=== PATIENT | female | born 1940 | race Caucasian/White ===

== ENCOUNTER 2016-07-17 10:04 | Day surgery (SDC) | payer MEDICARE, OTHER ==
[~2016-07-17 10:04] MED LIST: BUPIVACAINE HCL 0.75% INJ/PF (7.5 MG/1 ML) 10 ML SDV OD PRN; KETOROLAC TROMETHAMINE 0.45% 4 DROP/0.4 ML DROPERETTE OD PRN; LIDOCAINE 4% INJ/PF (40 MG/ML) 5 ML AMPUL OD PRN
[2016-07-17] MEDS: TROPICAMIDE 1% OPH SOLN 3 ML OD PRN ×3 (10:20→10:52)
[2016-07-17] MEDS: CYCLOPENTOLATE 0.2%/PHENYLEPHRINE 1% OPH SOLN 2 ML OD PRN ×3 (10:20→10:52)
[2016-07-17] MEDS: BESIFLOXACIN HCL 0.6% OPH SUSP 5 ML BOTTLE OD PRN ×3 (10:21→11:39)
[2016-07-17] MEDS: TETRACAINE HCL 0.5% OPH SOLN 0.6 ML DROPERETTE OD PRN ×2 (10:22→10:53)
[2016-07-17] MEDS ORDERED: PHENYLEPHRINE/KETOROLAC 1%-0.3% 4 ML VIAL ONE (10:43)
[2016-07-17] MEDS ORDERED: CHONDR SU A NA/HYALUR INTRAOC KIT (SURGICARE) ONE (10:43)
[2016-07-17] MEDS ORDERED: MIDAZOLAM 2 MG/2 ML INJ ONE (10:44)
--- NOTE | 2016-07-17 11:53 | [facility] OPERATIVE REPORT E ---
[facility] Operative Report NAME: AUBRIE MCCULLOUGH AGE: 76Y DATE OF SURGERY: 07/17/2016 ROOM: PREOPERATIVE DIAGNOSIS: Cataract, right eye. POSTOPERATIVE DIAGNOSIS: Cataract, right eye. PROCEDURE PERFORMED: Phacoemulsification with posterior chamber intraocular lens, right eye. SURGEON: CARMEN CESAR M.D. ANESTHESIA: Topical with MAC. INDICATIONS FOR SURGERY: Difficulty with glare at night and reading. Best corrected visual acuity 20/60. DESCRIPTION OF PROCEDURE: The patient was brought to the Operating Room and placed on the operative table. Following tetracaine drops, topical anesthesia was administered. This consisted of instrument wipe pledgets soaked in a solution of 4% Xylocaine mixed with 0.75% Marcaine in a 1:2 ratio. A 2 x 1 cm pledget was placed in the superior fornix. A 1 x 1 cm pledget was placed in the inferior fornix. The eye was patched shut for 5 minutes. The patch was removed. The eye was sterilely prepped and draped in the usual manner. Lid speculum was placed in the eye. The pledgets were removed. 4-0 black silk sutures were placed around the superior and the inferior rectus muscles to be used as traction. A conjunctival peritomy was made at the 10 o'clock position. Hemostasis was obtained with bipolar cautery. A posterior limbal groove was created using a crescent knife and dissected anteriorly towards the cornea. A sharp point blade was used to create a paracentesis site at the 2 o'clock position. A 2.4 mm keratome was used to enter the anterior chamber through the groove. Viscoelastic was injected into the anterior chamber. An anterior capsulotomy was performed using Utrata forceps in a capsulorrhexis fashion. Hydrodissection and hydrodelineation were performed. Phacoemulsification was performed in [id number] technique. A total of 1 minute 50 seconds phaco time was used. Following this, the I/A unit was used to remove residual cortex. Viscoelastic was injected into the capsular bag. Intraocular lens model SN60WF, 26.0 diopters, serial number [id number] was placed in the capsular bag. The I/A unit was used to remove residual viscoelastic. The wound was seen to be watertight under high and low pressure, and no sutures were placed. The intraocular lens was well centered. The pressure was adjusted in the eye to normal pressure. The 4-0 black silk sutures and lid speculum were removed. The eye was shielded after Besivance drops were placed. The patient tolerated the procedure well and was sent to the Recovery Room in good condition. DICTATING PHYSICIAN: CARMEN CESAR M.D. [id number] PHY#: [id number] ID: [id number] JOB#: [id number] ACCT: [id number] cc:CARMEN CESAR M.D. >
--- NOTE | 2016-07-17 11:58 | [facility] DISCHARGE SUMMARY E ---
[facility] Discharge Summary NAME: AUBRIE MCCULLOUGH AGE: 76Y ADMITTED: 07/17/2016 DISCHARGED: 07/17/2016 HOSPITAL COURSE: The patient is a 76-year-old lady who underwent uneventful cataract extraction with intraocular lens implant, right eye, on 07/17/2016. She will be discharged to home. She is instructed to resume preoperative medications, take Tylenol as needed for discomfort, to keep her eye shielded, to use Besivance, Durezol, and Ilevro at 3:00 p.m. and 8:00 p.m., and to follow up in my office in 1 day. DICTATING PHYSICIAN: CARMEN CESAR M.D. [id number] PHY#: [id number] ID: [id number] JOB#: [id number] ACCT: [id number] cc:CARMEN CESAR M.D. >
== END 2016-07-17 12:17 | disposition home or self-care (01) ==
LOC: SC 10:04
PROVIDERS: ATTEND Ophthalmology
PROC: 08RJ3JZ Replacement of Right Lens with Synthetic Substitute, Percutaneous Approach (ICD-10-PCS; principal; 2016-07-17 11:30)
DX: H25.813 Combined forms of age-related cataract, bilateral (principal); H04 Disorders of lacrimal system; H04.123 Dry eye syndrome of bilateral lacrimal glands; H00.15 Chalazion left lower eyelid; I10 Essential (primary) hypertension; E78.00 Pure hypercholesterolemia, unspecified; M19.90 Unspecified osteoarthritis, unspecified site; Z79.1 Long term (current) use of non-steroidal anti-inflammatories (NSAID); Z79.899 Other long term (current) drug therapy
CPT/HCPCS: 66984; V2632; J2250; J3490 ×3; A9270; C9447; 142

== ENCOUNTER 2016-08-14 08:06 | Day surgery (SDC) | payer MEDICARE, OTHER ==
[~2016-08-14 08:06] MED LIST changes: -BUPIVACAINE HCL 0.75% INJ/PF (7.5 MG/1 ML) 10 ML SDV OD PRN; +BUPIVACAINE HCL 0.75% INJ/PF (7.5 MG/1 ML) 10 ML SDV OS PRN; -KETOROLAC TROMETHAMINE 0.45% 4 DROP/0.4 ML DROPERETTE OD PRN; +KETOROLAC TROMETHAMINE 0.45% 4 DROP/0.4 ML DROPERETTE OS PRN; -LIDOCAINE 4% INJ/PF (40 MG/ML) 5 ML AMPUL OD PRN; +LIDOCAINE 4% INJ/PF (40 MG/ML) 5 ML AMPUL OS PRN
[2016-08-14] MEDS ORDERED: CHONDR SU A NA/HYALUR INTRAOC KIT (SURGICARE) ONE (08:24)
[2016-08-14] MEDS ORDERED: EPINEPHRINE INJ/PF 1 MG/1 ML AMPULE ONE (08:24)
[2016-08-14] MEDS: TROPICAMIDE 1% OPH SOLN 3 ML OS PRN ×3 (08:45→09:05)
[2016-08-14] MEDS: BESIFLOXACIN HCL 0.6% OPH SUSP 5 ML BOTTLE OS PRN ×4 (08:45→09:55)
[2016-08-14] MEDS: CYCLOPENTOLATE 0.2%/PHENYLEPHRINE 1% OPH SOLN 2 ML OS PRN ×3 (08:45→09:05)
[2016-08-14] MEDS: TETRACAINE HCL 0.5% OPH SOLN 0.6 ML DROPERETTE OS PRN ×2 (08:46→09:05)
[2016-08-14] MEDS ORDERED: MIDAZOLAM 2 MG/2 ML INJ ONE (09:14)
[2016-08-14] MEDS ORDERED: FENTANYL CITRATE INJ/PF 100 MCG/2 ML AMPUL ONE (09:14)
--- NOTE | 2016-08-14 10:13 | [facility] OPERATIVE REPORT E ---
[facility] Operative Report NAME: AUBRIE MCCULLOUGH AGE: 76Y DATE OF SURGERY: 08/14/2016 ROOM: PREOPERATIVE DIAGNOSIS: CATARACT, LEFT EYE. POSTOPERATIVE DIAGNOSIS: CATARACT, LEFT EYE. PROCEDURE PERFORMED: PHACOEMULSIFICATION WITH POSTERIOR CHAMBER INTRAOCULAR LENS, LEFT EYE. SURGEON: CARMEN CESAR MD ANESTHESIA: TOPICAL WITH MAC. INDICATIONS FOR SURGERY: Difficulty reading small print and glare with night driving. Best visual acuity 20/50. PROCEDURE: The patient was brought to the Operating Room and placed on the operative table. Following tetracaine drops, topical anesthesia was administered. This consisted of instrument wipe pledgets soaked in a solution of 4% Xylocaine mixed with 0.75% Marcaine in a 1:2 ratio. A 2 x 1 cm pledget was placed in the superior fornix. A 1 x 1 cm pledget was placed in the inferior fornix. The eye was patched shut for 5 minutes. The patch was removed. The eye was sterilely prepped and draped in the usual manner. Lid speculum was placed in the eye. The pledgets were removed. 4-0 black silk sutures were placed around the superior and the inferior rectus muscles to be used as traction. A conjunctival peritomy was made at the 10 o'clock position. Hemostasis was obtained with bipolar cautery. A posterior limbal groove was created using a crescent knife and dissected anteriorly towards the cornea. A sharp point blade was used to create a paracentesis site at the 2 o'clock position. A 2.4 mm keratome was used to enter the anterior chamber through the groove. Viscoelastic was injected into the anterior chamber. An anterior capsulotomy was performed using Utrata forceps in a capsulorrhexis fashion. Hydrodissection and hydrodelineation were performed. Phacoemulsification was performed in [id number] technique. A total of 50 seconds phaco time was used. Following this, the I/A unit was used to remove residual cortex. Viscoelastic was injected into the capsular bag. Intraocular lens model SN60WF, 27.0 diopters, serial number [id number] was placed in the capsular bag. The I/A unit was used to remove residual viscoelastic. The wound was seen to be watertight under high and low pressure, and no sutures were placed. The intraocular lens was well centered. The pressure was adjusted in the eye to normal pressure. The 4-0 black silk sutures and lid speculum were removed. The eye was shielded after Besivance drops were placed. The patient tolerated the procedure well and was sent to the Recovery Room in good condition. DICTATING PHYSICIAN: CARMEN CESAR M.D. [id number] PHY#: [id number] ID: [id number] JOB#: [id number] ACCT: [id number] cc:CARMEN CESAR M.D. >
--- NOTE | 2016-08-14 12:23 | DISCHARGE SUMMARY E ---
Discharge Summary NAME: AUBRIE MCCULLOUGH : 1940 AGE: 76Y ADMITTED: 08/14/2016 DISCHARGED: 08/14/2016 FINAL DIAGNOSIS: Cataract left eye. HOSPITAL COURSE: The patient is a 76-year-old lady who underwent uneventful cataract extraction with intraocular lens implant left eye on 08/14/2016. DISPOSITION: The patient is discharged to home. DISCHARGE INSTRUCTIONS: The patient is instructed to resume preoperative medications, take Tylenol as needed for discomfort, keep her eye shielded, to use Besivance, Durezol, and Ilevro at 3 p.m. and 8 p.m., and follow up in my office in 1 day. DICTATING PHYSICIAN: CARMEN CESAR M.D. [id number] PHY#: [id number] ID: [id number] JOB#: [id number] ACCT: [id number] cc:CARMEN CESAR M.D. >
== END 2016-08-14 10:39 | disposition home or self-care (01) ==
LOC: SC 08:06
PROVIDERS: ATTEND Ophthalmology
PROC: 08RK3JZ Replacement of Left Lens with Synthetic Substitute, Percutaneous Approach (ICD-10-PCS; principal; 2016-08-14 09:30)
DX: H25.812 Combined forms of age-related cataract, left eye (principal); Z96.1 Presence of intraocular lens; I10 Essential (primary) hypertension; M19.90 Unspecified osteoarthritis, unspecified site; Z79.1 Long term (current) use of non-steroidal anti-inflammatories (NSAID); Z79.899 Other long term (current) drug therapy
CPT/HCPCS: 66984; V2632; J2250; J3490 ×3; A9270; J0171; J3010; 142

== ENCOUNTER → 2017-02-25 | Outpatient (CLI) | payer OTHER ==
[2017-02-25 13:24] LABS: ABSOLUTE LYMPHOCYTES (AUTO) 1.5 10^3/uL (0.5-4.7); ABSOLUTE MONOCYTES (AUTO) 0.3 10^3/uL (0.1-1.4); ABSOLUTE NEUT (AUTO) 2.8 10^3/uL (1.7-8.2); EOSINOPHILS % (AUTO) 0.7 % (0-6); HEMOGLOBIN 9.3 g/dL (12.0-15.5); HGB HCT DIFFERENCE 0.9; LYMPHOCYTES % (AUTO) 31.6 % (13-45); MEAN CORPUSCULAR HEMOGLOBIN 26.7 pg (27.0-33.4); MEAN CORPUSCULAR HGB CONC 34.4 g/dL (32.0-36.0); MEAN CORPUSCULAR VOLUME 78 fl (80-97); MONOCYTES % (AUTO) 6.7 % (3-13); RED BLOOD COUNT 3.47 10^6/uL (3.72-5.28); RED CELL DISTRIBUTION WIDTH 16.5 % (11.5-14.0); WHITE BLOOD COUNT 4.7 10^3/uL (4.0-10.5)
== END ==
LOC: OD 12:30
PROVIDERS: ATTEND Nurse Practitioner Acute Care
DX: R53.83 Other fatigue (principal); R55 Syncope and collapse
CPT/HCPCS: 36415; 84443; 85025; 87086

== ENCOUNTER 2017-03-11 09:32 | Day surgery (SDC) | payer MEDICARE, OTHER ==
[~2017-03-11 09:32] MED LIST changes: -BUPIVACAINE HCL 0.75% INJ/PF (7.5 MG/1 ML) 10 ML SDV OS PRN; -KETOROLAC TROMETHAMINE 0.45% 4 DROP/0.4 ML DROPERETTE OS PRN; -LIDOCAINE 4% INJ/PF (40 MG/ML) 5 ML AMPUL OS PRN; +PROPOFOL INJ 200 MG/20 ML VIAL IV ONE
[2017-03-11 11:05] VITALS: BP 108/69
--- NOTE | 2017-03-11 12:31 | Operative Report ---
Operative Report DATE OF SURGERY: 03/11/17 Operative Report: The risks, benefits and alternatives of the procedure including risks of bleeding, perforation requiring surgery are explained to the patient detail and informed consent was obtained. Patient was taken back to the endoscopy suite and placed in the left, lateral decubital position. Timeout was called. Propofol medications administered. A rectal examination is done which did not reveal any masses, tears or fissures. An Olympus videoscope was inserted into the patient's rectum. The scope was then carefully advanced all the way to the cecum. The cecum was identified by the usual anatomical landmarks including the ileocecal valve as well as the appendiceal office. Photodocumentation is obtained. The scope was then sequentially pulled back via the various segments of the colon including the ascending colon, hepatic flexure, transverse colon, splenic flexure, descending colon, and finding to the rectosigmoid portions of the colon. Retroflexion maneuvers performed. The risks benefits and alternatives of the procedure explained to the patient in detail and informed consent is obtained.A GIF Olympus video scope was inserted into the patient's mouth and hypopharynx ,the esophagus is identified intubated and insufflated, the scope was then advanced through the esophagus stomach and duodenum, retroflexion maneuver is done, the esophagus stomach and first and second portions of the duodenum examined PREOPERATIVE DIAGNOSIS: Colorectal cancer screening. Anemia, rule out GI bleed POSTOPERATIVE DIAGNOSIS: Gastritis status post biopsy rule out Helicobacter pylori. 2 colon polyps removed via biopsy forceps. Another colon polyp in the sigmoid area removed via snare polypectomy. Internal hemorrhoids OPERATION: Colonoscopy with snare polypectomy. Colonoscopy with biopsy. EGD with biopsy SURGEON: GAYLE PINA ANESTHESIA: LMAC TISSUE REMOVED OR ALTERED: As described above. COMPLICATIONS: None. ESTIMATED BLOOD LOSS: None. INTRAOPERATIVE FINDINGS: No masses, AVMs, diverticulosis noted. PROCEDURE: Patient tolerated procedure well. No immediate postprocedure complications are noted. Patient discharged in good condition. Discharge date March 11, 2017. Discharge diet: Regular. Discharge activity: Regular. 2-3 week follow-up to discuss findings. Patient is instructed to call the office or proceed to the emergency room should there be any further problems or questions. We will wait on pathology. 5 year surveillance colonoscopy.
== END 2017-03-11 11:00 | disposition home or self-care (01) ==
LOC: END 09:32
PROVIDERS: ATTEND Internal Medicine Gastroenterology
PROC: 0DB68ZX Excision of Stomach, Via Natural or Artificial Opening Endoscopic, Diagnostic (ICD-10-PCS; principal; 2017-03-11 11:30)
PROC: 0DBN8ZX Excision of Sigmoid Colon, Via Natural or Artificial Opening Endoscopic, Diagnostic (ICD-10-PCS; 2017-03-11 11:30)
DX: Z12.11 Encounter for screening for malignant neoplasm of colon (principal); D12.5 Benign neoplasm of sigmoid colon; K29.50 Unspecified chronic gastritis without bleeding; D64.9 Anemia, unspecified; I10 Essential (primary) hypertension; E78.2 Mixed hyperlipidemia; E78.00 Pure hypercholesterolemia, unspecified; I25.10 Atherosclerotic heart disease of native coronary artery without angina pectoris; M16.10 Unilateral primary osteoarthritis, unspecified hip; M47.9 Spondylosis, unspecified; Z86.73 Personal history of transient ischemic attack (TIA), and cerebral infarction without residual deficits; Z79.899 Other long term (current) drug therapy
CPT/HCPCS: 43239; 45380; 45385; 88342 ×2; 88305 ×2; J2704

== ENCOUNTER 2017-08-09 09:45 | Observation (INO) | payer MEDICARE, OTHER ==
--- NOTE | 2017-08-09 11:08 | ER Document Report ---
ED Medical Screen (RME) - General Chief Complaint: Fall Stated Complaint: FALL/HEAD PAIN Time Seen by Provider: 08/09/17 11:06 Mode of Arrival: Wheelchair Information source: Patient Notes: 77-year-old female brought into the emergency room after syncopal episode at home. Patient was climbing onto steps to the bed and passed out. She did fall back and hit her head. She has got some headache, nausea, blurry vision. Patient has mild posterior occipital pain. She denied any precipitating chest pain or shortness of breath. Her medicines include lisinopril and atenolol as well as vitamins. She is not allergic to anything. TRAVEL OUTSIDE OF THE [place] IN LAST 30 DAYS: No - Related Data Allergies/Adverse Reactions: No Known Allergies Allergy (Verified 08/09/17 10:54) Past Medical History - Social History Chew tobacco use (# tins/day): No Frequency of alcohol use: None Drug Abuse: None - Past Medical History Cardiac Medical History: Reports: Hx Coronary Artery Disease, Hx Hypertension - MEDICATED Denies: Hx Heart Attack Pulmonary Medical History: Denies: Hx Asthma, Hx Bronchitis, Hx COPD, Hx Pneumonia Neurological Medical History: Denies: Hx Cerebrovascular Accident, Hx Seizures Renal/ Medical History: Denies: Hx Peritoneal Dialysis GI Medical History: Denies: Hx Hepatitis, Hx Hiatal Hernia, Hx Ulcer Musculoskeltal Medical History: Reports Hx Arthritis Infectious Medical History: Denies: Hx Hepatitis Past Surgical History: Denies: Hx Hysterectomy, Hx Mastectomy, Hx Open Heart Surgery, Hx Pacemaker - Immunizations Hx Diphtheria, Pertussis, Tetanus Vaccination: Yes Physical Exam - Vital signs Vitals: Temp Pulse Resp BP Pulse Ox 97.6 F 67 16 116/81 100 08/09/17 10:05 08/09/17 10:05 08/09/17 10:05 08/09/17 10:05 08/09/17 10:05 Course - Vital Signs Vital signs: Temp Pulse Resp BP Pulse Ox 97.6 F 67 16 116/81 100 08/09/17 10:05 08/09/17 10:05 08/09/17 10:05 08/09/17 10:05 08/09/17 10:05
[2017-08-09 12:05] LABS: ABSOLUTE MONOCYTES (AUTO) 0.1 10^3/uL (0.1-1.4); ABSOLUTE NEUT (AUTO) 1.8 10^3/uL (1.7-8.2); BASOPHILS % (AUTO) 0.8 % (0-2); EOSINOPHILS % (AUTO) 0.3 % (0-6); HEMATOCRIT 30.5 % (36.0-47.0); HEMOGLOBIN 10.1 g/dL (12.0-15.5); LYMPHOCYTES % (AUTO) 33.9 % (13-45); MEAN CORPUSCULAR HEMOGLOBIN 26.3 pg (27.0-33.4); MEAN CORPUSCULAR HGB CONC 33.1 g/dL (32.0-36.0); MEAN CORPUSCULAR VOLUME 79 fl (80-97); MONOCYTES % (AUTO) 4.2 % (3-13); PLATELET COUNT 179 10^3/uL (150-450); RED BLOOD COUNT 3.85 10^6/uL (3.72-5.28); SEGMENTED NEUTROPHILS % (AUTO) 60.8 % (42-78); TOTAL CELLS COUNTED % (AUTO) 100 %; WHITE BLOOD COUNT 2.9 10^3/uL (4.0-10.5)
--- NOTE | 2017-08-09 12:24 | RADIOLOGY REPORT (SQ) ---
EXAM DESCRIPTION: CHEST SINGLE VIEW COMPLETED DATE/TIME: 08/09/2017 12:11 pm REASON FOR STUDY: syncope COMPARISON: None. EXAM PARAMETERS: NUMBER OF VIEWS: One view. TECHNIQUE: Single frontal radiographic view of the chest acquired. RADIATION DOSE: NA LIMITATIONS: None. FINDINGS: LUNGS AND PLEURA: No opacities, masses or pneumothorax. No pleural effusion. MEDIASTINUM AND HILAR STRUCTURES: No masses. Contour normal. HEART AND VASCULAR STRUCTURES: Borderline heart size. No overt CHF. BONES: No acute findings. HARDWARE: None in the chest. OTHER: No other significant finding. IMPRESSION: Nothing acute. The heart borderline size. TECHNICAL DOCUMENTATION: JOB ID: [id number] [employer]- All Rights Reserved Reading location - IP/workstation name: [email or web address]
[2017-08-09 12:26] LABS: ALANINE AMINOTRANSFERASE 26 U/L (9-52); ALBUMIN 4.2 g/dL (3.5-5.0); ALKALINE PHOSPHATASE 72 U/L (38-126); ANION GAP 9 (5-19); ASPARTATE AMINO TRANSFERASE 34 U/L (14-36); BILIRUBIN,DIRECT 0.7 mg/dL (0.0-0.4); BILIRUBIN,TOTAL 1.2 mg/dL (0.2-1.3); BLOOD UREA NITROGEN 21 mg/dL (7-20); CALCIUM 9.2 mg/dL (8.4-10.2); CARBON DIOXIDE 25 mmol/L (22-30); CHLORIDE 100 mmol/L (98-107); CREATINE KINASE 64 U/L (30-135); GLUCOSE 107 mg/dL (75-110); POTASSIUM 4.1 mmol/L (3.6-5.0); SODIUM 134.4 mmol/L (137-145); TOTAL PROTEIN 8.3 g/dL (6.3-8.2)
--- NOTE | 2017-08-09 12:29 | RADIOLOGY REPORT (SQ) ---
EXAM DESCRIPTION: CT HEAD WITHOUT COMPLETED DATE/TIME: 08/09/2017 12:19 pm REASON FOR STUDY: syncope COMPARISON: None. TECHNIQUE: Axial images acquired through the brain without intravenous contrast. Images reviewed wi th bone, brain and subdural windows. Images stored on PACS. All CT scanners at this facility use dose modulation, iterative reconstruction, and/or weight based d osing when appropriate to reduce radiation dose to as low as reasonably achievable (ALARA). [facility]: Dose Right [facility]: CareDose [facility]: Dose Right [facility]: Teradose 4D [facility]: [employer] RADIATION DOSE: CT Rad equipment meets quality standard of care and radiation dose reduction techniq ues were employed. CTDIvol: 49.0 mGy. DLP: 783 mGy-cm. mGy. LIMITATIONS: None. FINDINGS: VENTRICLES: Prominent. CEREBRUM: No masses. No hemorrhage. No midline shift. Areas of low density in the white matter mos t likely due to chronic micro-vascular ischemic change. No evidence for acute infarction. CEREBELLUM: No masses. No hemorrhage. No alteration of density. No evidence for acute infarction. EXTRAAXIAL SPACES: Mild age-related involutional change. No fluid collections. No masses. ORBITS AND GLOBE: No intra- or extraconal masses. Normal contour of globe without masses. CALVARIUM: No fracture. PARANASAL SINUSES: No fluid or mucosal thickening. SOFT TISSUES: No mass or hematoma. OTHER: No other significant finding. IMPRESSION: MILD CHRONIC CHANGES OF ATROPHY AND MICROVASCULAR ISCHEMIA. NO ACUTE PROCESS. EVIDENCE OF ACUTE STROKE: NO. TECHNICAL DOCUMENTATION: JOB ID: [id number] Quality ID # [id number]: Final reports with documentation of one or more dose reduction techniques (e.g., Au tomated exposure control, adjustment of the mA and/or kV according to patient size, use of iterative reconstruction technique) 2010 [employer]- All Rights Reserved Reading location - IP/workstation name: [email or web address]
[2017-08-09 12:38] LABS: CREATINE KINASE MB 0.79 ng/mL (<4.55); TROPONIN I < 0.012 ng/mL
--- NOTE | 2017-08-09 12:44 | RADIOLOGY REPORT (SQ) ---
EXAM DESCRIPTION: CT CERVICAL SPINE WITHOUT COMPLETED DATE/TIME: 08/09/2017 12:19 pm REASON FOR STUDY: syncope COMPARISON: None. TECHNIQUE: Axial images acquired through the cervical spine without intravenous contrast. Images re viewed with lung, soft tissue and bone windows. Reconstructed coronal and sagittal MPR images review ed. Images stored on PACS. All CT scanners at this facility use dose modulation, iterative reconstruction, and/or weight based d osing when appropriate to reduce radiation dose to as low as reasonably achievable (ALARA). [facility]: Dose Right [facility]: CareDose [facility]: Dose Right [facility]: Teradose 4D [facility]: [employer] RADIATION DOSE: CT Rad equipment meets quality standard of care and radiation dose reduction techniq ues were employed. CTDIvol: 14.3 mGy. DLP: 333 mGy-cm. mGy. LIMITATIONS: None. FINDINGS: ALIGNMENT: Anatomic. MINERALIZATION: Normal. VERTEBRAL BODIES: No fractures or dislocation. DISCS: Multilevel disc space narrowing with osteophytes. FACETS, LATERAL MASSES, POSTERIOR ELEMENTS: Facet arthropathy. No fractures. No dislocation. No ac avril findings. HARDWARE: None in the spine. VISUALIZED RIBS: No fractures. LUNG APICES AND SOFT TISSUES: No significant or acute findings. OTHER: No other significant finding. IMPRESSION: CHRONIC DEGENERATIVE CHANGES. NO ACUTE FINDINGS. TECHNICAL DOCUMENTATION: JOB ID: [id number] Quality ID # [id number]: Final reports with documentation of one or more dose reduction techniques (e.g., Au tomated exposure control, adjustment of the mA and/or kV according to patient size, use of iterative reconstruction technique) 2010 [employer]- All Rights Reserved Reading location - IP/workstation name: [email or web address]
--- NOTE | 2017-08-09 14:09 | ER Document Report ---
ED General - General Chief Complaint: Fall Stated Complaint: FALL/HEAD PAIN Time Seen by Provider: 08/09/17 11:06 Mode of Arrival: Wheelchair TRAVEL OUTSIDE OF THE [place] IN LAST 30 DAYS: No - HPI Patient complains to provider of: passed out while climbing two steps onto porch to go back into house Onset: Just prior to arrival Onset/Duration: Sudden Quality of pain: Other - pain right side of head after fall Associated symptoms: None Exacerbated by: Denies Relieved by: Denies Notes: She was home with her 7-year-old granddaughter and was going back into the house to help her get a dog back in the bathroom that she had let out. She states the next thing she knew she was climbing up 2 steps and then she woke up on the porch lying on her back. She did get up on her own went back into the house. - Related Data Allergies/Adverse Reactions: No Known Allergies Allergy (Verified 08/09/17 10:54) Past Medical History - General Information source: Patient - Social History Smoking Status: Unknown if Ever Smoked Chew tobacco use (# tins/day): No Frequency of alcohol use: None Drug Abuse: None Lives with: Family Family History: Hypertension Patient has suicidal ideation: No Patient has homicidal ideation: No - Past Medical History Cardiac Medical History: Reports: Hx Coronary Artery Disease, Hx Hypertension - MEDICATED Denies: Hx Heart Attack Pulmonary Medical History: Denies: Hx Asthma, Hx Bronchitis, Hx COPD, Hx Pneumonia Neurological Medical History: Denies: Hx Cerebrovascular Accident, Hx Seizures Endocrine Medical History: Reports: None Renal/ Medical History: Reports: None. Denies: Hx Peritoneal Dialysis Malignancy Medical History: Reports: None GI Medical History: Reports: None. Denies: Hx Hepatitis, Hx Hiatal Hernia, Hx Ulcer Musculoskeltal Medical History: Reports Hx Arthritis Psychiatric Medical History: Reports: None Traumatic Medical History: Reports: None Infectious Medical History: Reports: None. Denies: Hx Hepatitis Past Surgical History: Denies: Hx Hysterectomy, Hx Mastectomy, Hx Open Heart Surgery, Hx Pacemaker - Immunizations Hx Diphtheria, Pertussis, Tetanus Vaccination: Yes Hx Pneumococcal Vaccination: 02/09/16 Review of Systems - Review of Systems Constitutional: No symptoms reported EENT: No symptoms reported Cardiovascular: No symptoms reported Respiratory: No symptoms reported Gastrointestinal: No symptoms reported Genitourinary: No symptoms reported Female Genitourinary: No symptoms reported Musculoskeletal: No symptoms reported Skin: No symptoms reported Hematologic/Lymphatic: No symptoms reported Neurological/Psychological: No symptoms reported Physical Exam - Vital signs Vitals: Temp Pulse Resp BP Pulse Ox 97.6 F 67 16 116/81 100 08/09/17 10:05 08/09/17 10:05 08/09/17 10:05 08/09/17 10:05 08/09/17 10:05 - Notes Notes: PHYSICAL EXAMINATION: GENERAL: Well-appearing, well-nourished and in no acute distress. HEAD: Atraumatic, normocephalic. EYES: Pupils equal round and reactive to light, extraocular movements intact, conjunctiva are normal. ENT: Nares patent, oropharynx clear without exudates. Moist mucous membranes. NECK: Normal range of motion, supple without lymphadenopathy. No pain with palpation of the bony cervical spine. No step off. LUNGS: Breath sounds clear to auscultation bilaterally and equal. No wheezes rales or rhonchi. HEART: Regular rate and rhythm without murmurs. ABDOMEN: Soft, nontender, nondistended abdomen. No guarding, no rebound. No masses appreciated. Female : deferred Musculoskeletal: Normal range of motion, no pitting or edema. No cyanosis. NEUROLOGICAL: Cranial nerves grossly intact. Normal speech. Normal sensory, motor exams PSYCH: Normal mood, normal affect. SKIN: Warm, Dry, normal turgor, no rashes or lesions noted. Course - Re-evaluation Re-evalutation: 08/09/17 15:11 Labs- All tests 24 hr 08/09/17 08/09/17 08/09/17 11:50 11:50 11:50 WBC 2.9 L RBC 3.85 Hgb 10.1 L Hct 30.5 L MCV 79 L MCH 26.3 L MCHC 33.1 RDW 19.0 H Plt Count 179 Seg Neutrophils % 60.8 Lymphocytes % 33.9 Monocytes % 4.2 Eosinophils % 0.3 Basophils % 0.8 Absolute Neutrophils 1.8 Absolute Lymphocytes 1.0 Absolute Monocytes 0.1 Absolute Eosinophils 0.0 Absolute Basophils 0.0 Sodium 134.4 L Potassium 4.1 Chloride 100 Carbon Dioxide 25 Anion Gap 9 BUN 21 H Creatinine 0.96 Est GFR ( Amer) > 60 Est GFR (Non-Af Amer) 57 L Glucose 107 Calcium 9.2 Total Bilirubin 1.2 Direct Bilirubin 0.7 H Neonat Total Bilirubin Not Reportable Neonat Direct Bilirubin Not Reportable Neonat Indirect Bili Not Reportable AST 34 ALT 26 Alkaline Phosphatase 72 Creatine Kinase 64 CK-MB (CK-2) 0.79 Troponin I < 0.012 Total Protein 8.3 H Albumin 4.2 Abnormal - 24 hr 08/09/17 08/09/17 11:50 11:50 WBC 2.9 L Hgb 10.1 L Hct 30.5 L MCV 79 L MCH 26.3 L RDW 19.0 H Sodium 134.4 L BUN 21 H Est GFR (Non-Af Amer) 57 L Direct Bilirubin 0.7 H Total Protein 8.3 H Chest X-Ray 08/09/17 11:06 IMPRESSION: Nothing acute. The heart borderline size. Head CT 08/09/17 11:06 IMPRESSION: MILD CHRONIC CHANGES OF ATROPHY AND MICROVASCULAR ISCHEMIA. NO ACUTE PROCESS. EVIDENCE OF ACUTE STROKE: NO. Cervical Spine CT 08/09/17 11:07 IMPRESSION: CHRONIC DEGENERATIVE CHANGES. NO ACUTE FINDINGS. - Vital Signs Vital signs: Temp Pulse Resp BP Pulse Ox 97.6 F 67 13 116/76 100 08/09/17 10:05 08/09/17 10:05 08/09/17 14:18 08/09/17 14:18 08/09/17 14:18 - Laboratory Result Diagrams: 08/09/17 11:50 08/09/17 11:50 Laboratory results interpreted by me: 08/09/17 08/09/17 11:50 11:50 WBC 2.9 L Hgb 10.1 L Hct 30.5 L MCV 79 L MCH 26.3 L RDW 19.0 H Sodium 134.4 L BUN 21 H Est GFR (Non-Af Amer) 57 L Direct Bilirubin 0.7 H Total Protein 8.3 H Discharge - Discharge Clinical Impression: Syncope Condition: Stable Disposition: ADMITTED OBSERVATION Admitting Provider: Hospitalist - Dr. Wilson Unit Admitted: Telemetry
--- NOTE | 2017-08-09 14:27 | EKG REPORT ---
SEVERITY:- ABNORMAL ECG - SINUS RHYTHM LEFT VENTRICULAR HYPERTROPHY : Confirmed by: James Franks MD 09-Aug-2017 14:26:55
[2017-08-09] MEDS: IBUPROFEN 600 MG TABLET PO PRN (17:15)
[2017-08-09] MEDS: ACETAMINOPHEN 325 MG TABLET PO PRN (19:13)
[2017-08-10 05:11] LABS: HEMATOCRIT 27.1 % (36.0-47.0); HEMOGLOBIN 9.1 g/dL (12.0-15.5); MEAN CORPUSCULAR HEMOGLOBIN 26.8 pg (27.0-33.4); MEAN CORPUSCULAR HGB CONC 33.7 g/dL (32.0-36.0); MEAN CORPUSCULAR VOLUME 80 fl (80-97); PLATELET COUNT 145 10^3/uL (150-450); RED BLOOD COUNT 3.41 10^6/uL (3.72-5.28); RED CELL DISTRIBUTION WIDTH 18.8 % (11.5-14.0); WHITE BLOOD COUNT 2.5 10^3/uL (4.0-10.5)
[2017-08-10 05:32] LABS: BLOOD UREA NITROGEN 25 mg/dL (7-20); CALCIUM 8.6 mg/dL (8.4-10.2); GLUCOSE 95 mg/dL (75-110); POTASSIUM 3.9 mmol/L (3.6-5.0)
[2017-08-10 05:37] LABS: CARBON DIOXIDE 27 mmol/L (22-30); CHLORIDE 105 mmol/L (98-107); SODIUM 135.3 mmol/L (137-145)
[2017-08-10 05:40] LABS: ANION GAP 4 (5-19)
[2017-08-10] MEDS: IBUPROFEN 600 MG TABLET PO PRN ×2 (05:52→18:01)
[2017-08-10 06:17] LABS: ABSOLUTE LYMPHOCYTES# (MANUAL) 1.7 10^3/uL (0.5-4.7); ABSOLUTE MONOCYTES # (MANUAL) 0.1 10^3/uL (0.1-1.4); ABSOLUTE NEUTROPHILS# (MANUAL) 0.6 10^3/uL (1.7-8.2); BASOPHILS % (MANUAL) 1 % (0-2); EOSINOPHILS % (MANUAL) 4 % (0-6); MONOCYTES % (MANUAL) 4 % (3-13); SEGMENTED NEUTROPHILS % (MAN) 25 % (42-78); TOTAL CELLS COUNTED 100
[2017-08-10 06:19] LABS: ANISOCYTOSIS 2+; OVALOCYTES SLIGHT; PLATELET COMMENT ADEQUATE; POLYCHROMASIA SLIGHT
[2017-08-10 06:20] LABS: LYMPHOCYTES % (MANUAL) 66 % (13-45)
[2017-08-10] MEDS: ENOXAPARIN SODIUM INJ 30 MG/0.3 ML DISP.SYRIN SUBCUT SCH (10:59)
[2017-08-10] MEDS: ACETAMINOPHEN 325 MG TABLET PO PRN ×2 (11:00→21:30)
--- NOTE | 2017-08-10 15:10 | XCELERA REPORT ---
[address] [address] Transthoracic Echocardiogram Report Name: AUBRIE MCCULLOUGH Age: 77 yrs Gender: Female : 1940 Patient Status: Inpatient Patient Location: [address] [place] [address] Study Date: 08/10/2017 12:01 PM Height: 65 in Weight: 130 lb BSA: 1.6 m2 Procedure: A complete two-dimensional transthoracic echocardiogram was performed (2D, M-mode, spectral and color flow Doppler). The study was technically adequate with some images being suboptimal in quality. Reason For Study: Recurrent syncope Ordering Physician: TIMOTHY ANDERS Performed By: Sharyn Antonio Interpretation Summary Left ventricular systolic function is low normal. There is borderline concentric left ventricular hypertrophy. The left ventricle is grossly normal size. LV diastolic function could not be adequately assessed. Wall motion cannot be accurately commented on, but no definite regional wall motion abnormalities noted. The right ventricular systolic function is normal. The left atrium is mildly dilated. The right atrium is normal in size There is a moderate amount of mitral regurgitation There is no mitral valve stenosis. There is a mild amount of aortic regurgitation There is no aortic valve stenosis There is a mild to moderate amount of tricuspid regurgitation There is mild pulmonary hypertension by echo Right ventricular systolic pressure is estimated to be elevated at 30- 40mmHg. The aortic root is not well visualized but is probably normal size. The inferior vena cava appeared normal and decreased < 50% with respiration (RAP 10-15 mmHg) Minimal pericardial effusion. MMode/2D Measurements & Calculations RVDd: 2.3 cm LVIDd: 4.5 cm FS: 20.2 % MV Diam: 3.1 cm IVSd: 1.0 cm LVIDs: 3.6 cm EDV(Teich): LVPWd: 1.00 cm 94.2 ml ESV(Teich): 55.1 ml EF(Teich): 41.5 % Ao root diam: LVOT diam: LVLd ap4: 6.6 cm SV(MOD-sp4): 39.0 ml 3.0 cm 2.1 cm EDV(MOD-sp4): Ao root area: LVOT area: 76.0 ml 7.0 cm2 3.4 cm2 LVLs ap4: 5.6 cm LA dimension: ESV(MOD-sp4): 4.0 cm 37.0 ml EF(MOD-sp4): 51.3 % LA A2Cs: 27.4 cm2 LA A4Cs: LA length: 6.4 cm LA Vol Index (BP): 30.0 cm2 65.9 ml/m2 LA Volume: 108.5 ml Doppler Measurements & Calculations MV E max graham: MV area (1 diam): MV P1/2t max graham: Ao V2 max: 95.2 cm/sec 96.0 cm/sec 152.0 cm/sec MV A max graham: 7.7 cm2 MV P1/2t: 36.4 msec Ao max P.7 cm/sec MV Flow area 9.2 mmHg MV E/A: 2.0 (1diam): 7.7 cm2 MVA(P1/2t): 6.0 cm2 LARRY(V,D): MV dec slope: 772.9 cm/sec2 2.0 cm2 AI max graham: LV V1 max PG: MR max graham: PA V2 max: 390.9 cm/sec 3.1 mmHg 687.7 cm/sec 92.8 cm/sec AI max PG: LV V1 max: MR max PG: PA max P.2 mmHg 88.3 cm/sec 189.2 mmHg 3.4 mmHg AI dec slope: LV dP/dt: 170.4 cm/sec2 1010 mmHg/s AI P1/2t: 671.9 msec TR max graham: 260.6 cm/sec TR max P.2 mmHg Left Ventricle The left ventricle is grossly normal size. There is borderline concentric left ventricular hypertrophy. Left ventricular systolic function is low normal. LV diastolic function could not be adequately assessed. Wall motion cannot be accurately commented on, but no definite regional wall motion abnormalities noted. Right Ventricle The right ventricle is grossly normal size. There is normal right ventricular wall thickness. The right ventricular systolic function is normal. Atria The right atrium is normal in size. The left atrium is mildly dilated. Interarterial septum not well visualized and not well dopplered. Cannot comment on ASD/PFO presence. Mitral Valve The mitral valve is grossly normal. There is no mitral valve stenosis. There is a moderate amount of mitral regurgitation. Aortic Valve The aortic valve is grossly normal. There is no aortic valve stenosis. There is a mild amount of aortic regurgitation. Tricuspid Valve The tricuspid valve is not well visualized, but is grossly normal. There is no tricuspid stenosis. There is a mild to moderate amount of tricuspid regurgitation. There is mild pulmonary hypertension by echo. Right ventricular systolic pressure is estimated to be elevated at 30-40mmHg. Pulmonic Valve The pulmonic valve is not well visualized. There is a trace or physiologic amount of pulmonic regurgitation. Great Vessels The aortic root is not well visualized but is probably normal size. The inferior vena cava appeared normal and decreased < 50% with respiration (RAP 10-15 mmHg). Effusions Minimal pericardial effusion. : ONIME, AGUIRRE > Lacho Colbert
--- NOTE | 2017-08-10 15:24 | PDOC H&P ---
History of Present Illness Admission Date/PCP: 08/09/17 14:10 MENDEZ BORJA DO Patient complains of: Fall. History of Present Illness: AUBRIE MCCULLOUGH is a 77 year old female history of hypertension presented to the ED after a syncopal episode at home. Patient reports climbing up steps on the porch getting ready to take her 7-year old great-granddaughter to school when she suddenly collapsed. She had no prodrome or aura. She did not think she lost consciousness or was out for a long time. No loss of urine or back continence, no shaking motions, no tongue biting. Complains of pain right side of the head, no bleeding. She got up after the episode and drove her great granddaughter to school. She denies chest pain, no fever or chills, no nausea vomiting. She had a headache, but that has improved. Initial evaluation including head and cervical CT scan without acute process. EKG sinus rhythm with LVH. Patient referred to hospitalist and being admitted to observation for further evaluation and management. Of note is that patient reports history of syncope twice in the past, once in January 2016 and the other on February 10, 2017. She also reports history of anemia and colonoscopy has been negative. EGD also apparently unremarkable and she has been treated for H. pylori infection. She is seeing methodologist, Dr. Nam, and states she is being considered for bone marrow biopsy. Past Medical History Cardiac Medical History: Reports: Coronary Artery Disease, Hypertension - MEDICATED Denies: Myocardial Infarction Pulmonary Medical History: Denies: Asthma, Bronchitis, Chronic Obstructive Pulmonary Disease (COPD), Pneumonia Neurological Medical History: Denies: Seizures Endocrine Medical History: Reports: None Renal/ Medical History: Reports: None Malignancy Medical History: Reports: None GI Medical History: Reports: None Denies: Hepatitis, Hiatal Hernia Musculoskeltal Medical History: Reports: Arthritis Psychiatric Medical History: Reports: None Traumatic Medical History: Reports: None Hematology: Reports: Anemia Denies: Sickle Cell Disease Infectious Medical History: Reports: None Past Surgical History Past Surgical History: Denies: Amputation, Hysterectomy, Mastectomy, Pacemaker Social History Lives with: Family Smoking Status: Unknown if Ever Smoked Frequency of Alcohol Use: None Family History Family History: Hypertension Parental Family History Reviewed: Yes Children Family History Reviewed: Unknown Sibling(s) Family History Reviewed.: Unknown Medication/Allergy Home Medications: Lysine HCl [L-Lysine] 500 mg PO DAILY 08/09/17 Magnesium 250 mg PO DAILY 08/09/17 Multivit-Min/Iron/Folic/Lutein [Centrum Silver Women Tablet] 1 each PO DAILY 07/28 Atenolol [Tenormin 50 mg Tablet] 50 mg PO DAILY 08/10/17 Furosemide [Lasix 20 mg Tablet] 20 mg PO DAILY 08/10/17 Lisinopril/Hydrochlorothiazide [Lisinopril-Hctz 20-25 mg Tab] 1 tab PO DAILY 08/25 Allergies/Adverse Reactions: No Known Allergies Allergy (Verified 08/09/17 10:54) Review of Systems Review of Systems: As in HPI. Also, denies heat or cold intolerance, no significant depression, no abdominal pain, denies hematemesis. No hematuria, no dysuria polyuria or urinary frequency. Has a problem with lower extremity edema currently improved. Also was thought to have cellulitis in the recent past and treated with antibiotics and steroids doing better. Physical Exam Vital Signs: Temp Pulse Resp BP Pulse Ox 97.6 F 67 13 116/76 100 08/09/17 10:05 08/09/17 10:05 08/09/17 14:18 08/09/17 14:18 08/09/17 14:18 GENERAL: Well-developed, well-nourished, no acute distress HEENT: Normocephalic/atraumatic PERRL, extraocular muscles intact, sclerae anicteric NECK supple, no JVD, right carotid bruit heard CARDIOVASCULAR: RRR, normal S1-S2 LUNGS: CTA bilaterally ABDOMEN: Soft, NT, NL bowel sounds EXTREMITIES: No edema, clubbing, cyanosis NEUROLOGICAL: Alert, oriented x 3, nonfocal Results Laboratory Results: Labs- All tests 24 hr 08/09/17 08/09/17 08/09/17 11:50 11:50 11:50 WBC 2.9 L RBC 3.85 Hgb 10.1 L Hct 30.5 L MCV 79 L MCH 26.3 L MCHC 33.1 RDW 19.0 H Plt Count 179 Seg Neutrophils % 60.8 Lymphocytes % 33.9 Monocytes % 4.2 Eosinophils % 0.3 Basophils % 0.8 Absolute Neutrophils 1.8 Absolute Lymphocytes 1.0 Absolute Monocytes 0.1 Absolute Eosinophils 0.0 Absolute Basophils 0.0 Sodium 134.4 L Potassium 4.1 Chloride 100 Carbon Dioxide 25 Anion Gap 9 BUN 21 H Creatinine 0.96 Est GFR ( Amer) > 60 Est GFR (Non-Af Amer) 57 L Glucose 107 Calcium 9.2 Total Bilirubin 1.2 Direct Bilirubin 0.7 H Neonat Total Bilirubin Not Reportable Neonat Direct Bilirubin Not Reportable Neonat Indirect Bili Not Reportable AST 34 ALT 26 Alkaline Phosphatase 72 Creatine Kinase 64 CK-MB (CK-2) 0.79 Troponin I < 0.012 Total Protein 8.3 H Albumin 4.2 Abnormal - 24 hr 08/09/17 08/09/17 11:50 11:50 WBC 2.9 L Hgb 10.1 L Hct 30.5 L MCV 79 L MCH 26.3 L RDW 19.0 H Sodium 134.4 L BUN 21 H Est GFR (Non-Af Amer) 57 L Direct Bilirubin 0.7 H Total Protein 8.3 H Impressions: Chest X-Ray 08/09/17 11:06 IMPRESSION: Nothing acute. The heart borderline size. Head CT 08/09/17 11:06 IMPRESSION: MILD CHRONIC CHANGES OF ATROPHY AND MICROVASCULAR ISCHEMIA. NO ACUTE PROCESS. EVIDENCE OF ACUTE STROKE: NO. Cervical Spine CT 08/09/17 11:07 IMPRESSION: CHRONIC DEGENERATIVE CHANGES. NO ACUTE FINDINGS. Assessment & Plan - Diagnosis (1) Syncope Is this a current diagnosis for this admission?: Yes (2) Hypertension Is this a current diagnosis for this admission?: Yes (3) Anemia Is this a current diagnosis for this admission?: Yes (4) Leukopenia Is this a current diagnosis for this admission?: Yes (5) Right carotid bruit Is this a current diagnosis for this admission?: Yes - Plan Summary Plan Summary: We will admit patient to observation observation. Will monitor on telemetry to evaluate for arrhythmia. We will check echocardiogram. Also check carotid Dopplers, especially in light of right carotid bruit. Will rule out [place] with serial troponin. Check electrolytes/magnesium level.
[2017-08-11 04:53] LABS: HEMATOCRIT 28.1 % (36.0-47.0); HEMOGLOBIN 9.4 g/dL (12.0-15.5); MEAN CORPUSCULAR HEMOGLOBIN 26.4 pg (27.0-33.4); MEAN CORPUSCULAR HGB CONC 33.4 g/dL (32.0-36.0); MEAN CORPUSCULAR VOLUME 79 fl (80-97); PLATELET COUNT 149 10^3/uL (150-450); RED BLOOD COUNT 3.56 10^6/uL (3.72-5.28); RED CELL DISTRIBUTION WIDTH 19.1 % (11.5-14.0); WHITE BLOOD COUNT 2.2 10^3/uL (4.0-10.5)
[2017-08-11 05:08] LABS: ANION GAP 9 (5-19); BLOOD UREA NITROGEN 28 mg/dL (7-20); CARBON DIOXIDE 24 mmol/L (22-30); CHLORIDE 105 mmol/L (98-107); GLUCOSE 91 mg/dL (75-110); SODIUM 138.3 mmol/L (137-145)
[2017-08-11 07:24] LABS: ABSOLUTE LYMPHOCYTES# (MANUAL) 1.1 10^3/uL (0.5-4.7); ABSOLUTE MONOCYTES # (MANUAL) 0.2 10^3/uL (0.1-1.4); ABSOLUTE NEUTROPHILS# (MANUAL) 0.8 10^3/uL (1.7-8.2); BASOPHILS % (MANUAL) 1 % (0-2); EOSINOPHILS % (MANUAL) 3 % (0-6); LYMPHOCYTES % (MANUAL) 45 % (13-45); MONOCYTES % (MANUAL) 9 % (3-13); SEGMENTED NEUTROPHILS % (MAN) 37 % (42-78); TOTAL CELLS COUNTED 100
[2017-08-11 07:25] LABS: ANISOCYTOSIS 1+; HYPOCHROMASIA 1+; PLATELET COMMENT ADEQUATE
[2017-08-11] MEDS: ENOXAPARIN SODIUM INJ 30 MG/0.3 ML DISP.SYRIN SUBCUT SCH (11:18)
--- NOTE | 2017-08-11 14:12 | PDOC PROGRESS REPORT ---
Subjective Progress Note for:: 08/11/17 Subjective:: Doing better today. Headaches remain resolved, denies palpitations or chest pain. Chem-7 today reveals that creatinine bumped up. Patient has been using ibuprofen for pain, as prefers. Making urine okay, denies dysuria or polyuria or frequency. Of note is that patient was noted this admission to have significantly higher blood pressures on the right arm than on the left. States it has been so for several years. Also of note is that blood pressure systolic running low left side in spite of BP medications on hold. Denies fever or chills, no nausea or vomiting. No recurrent syncope since in the hospital. Reason For Visit: RECURRENT SYNCOPE,HYPERTENSION Physical Exam Vital Signs: Temp Pulse Resp BP Pulse Ox 97.6 F 75 16 107/65 99 08/11/17 11:27 08/11/17 11:27 08/11/17 11:27 08/11/17 11:27 08/11/17 11:27 Intake & Output 08/10/17 08/11/17 08/12/17 06:59 06:59 06:59 Intake Total 690 Balance 690 Weight 57.6 kg GEN: NAD, well-developed, well-nourished CV: RRR, NL S1S2 LUNGS: CTA bilaterally ABDOMEN Soft, NT, +BS EXTERMITIES: No e/c/c NEURO: Alert, oriented 3, no acute weakness Results Laboratory Results: 08/11/17 04:05 08/11/17 04:05 08/11/17 08/11/17 04:05 04:05 WBC 2.2 L RBC 3.56 L Hgb 9.4 L Hct 28.1 L MCV 79 L MCH 26.4 L MCHC 33.4 RDW 19.1 H Plt Count 149 L Seg Neutrophils % Not Reportable Lymphocytes % Not Reportable Monocytes % Not Reportable Eosinophils % Not Reportable Basophils % Not Reportable Absolute Neutrophils Not Reportable Absolute Lymphocytes Not Reportable Absolute Monocytes Not Reportable Absolute Eosinophils Not Reportable Absolute Basophils Not Reportable Sodium 138.3 Potassium 4.0 Chloride 105 Carbon Dioxide 24 Anion Gap 9 BUN 28 H Creatinine 1.49 H Est GFR ( Amer) 41 L Est GFR (Non-Af Amer) 34 L Glucose 91 Calcium 9.0 08/09/17 17:05 Troponin I < 0.012 Impressions: Chest X-Ray 08/09/17 11:06 IMPRESSION: Nothing acute. The heart borderline size. Head CT 08/09/17 11:06 IMPRESSION: MILD CHRONIC CHANGES OF ATROPHY AND MICROVASCULAR ISCHEMIA. NO ACUTE PROCESS. EVIDENCE OF ACUTE STROKE: NO. Cervical Spine CT 08/09/17 11:07 IMPRESSION: CHRONIC DEGENERATIVE CHANGES. NO ACUTE FINDINGS. Assessment & Plan - Diagnosis (1) Syncope Is this a current diagnosis for this admission?: Yes Plan: Patient may be having syncope episodes secondary to hypotensive episodes. She may be on too much blood pressure medications. We will continue to hold blood pressure medication check blood pressures. Also check orthostatics. -Echo EF low normal, moderate MR. - carotid Dopplers results pending--follow-up results. -Also concern is the differential BP reading in her upper extremities. Creatine up today -- hydrate gently and consider CTA to evaluate for subclavian steal syndrome (2) Hypertension Is this a current diagnosis for this admission?: Yes Plan: Currently controlled off BP meds. It is possible blood pressure meds were being titrated up with the reading on the right arm. We will continue to hold blood pressure medications and monitor blood pressures. (3) Anemia Is this a current diagnosis for this admission?: Yes Plan: H&H stable. We will continue to trend. Patient follows up with Dr. Bullard of hematology as outpatient. (4) Leukopenia Is this a current diagnosis for this admission?: Yes Plan: Slowly trending down. Continue to follow. Again, patient follow-up with Dr. Nam of hematology as outpatient. (5) Right carotid bruit Is this a current diagnosis for this admission?: Yes Plan: Workup in progress, carotid ultrasound has been done and results pending.
--- NOTE | 2017-08-11 14:43 | RADIOLOGY REPORT (SQ) ---
EXAM DESCRIPTION: CAROTID DOPPLER COMPLETED DATE/TIME: 08/10/2017 2:00 pm REASON FOR STUDY: Syncope, RT carotid bruit R55 SYNCOPE AND COLLAPSE COMPARISON: None. TECHNIQUE: Grayscale ultrasound, Doppler velocity and spectra, and color Doppler images acquired of the extra-cranial carotid and vertebral arteries. Images stored on PACS. LIMITATIONS: None. FINDINGS: RIGHT CAROTID CCA Velocities: Within normal limits. ICA Velocities Peak systolic 1.38 m/s. End diastolic 0.36 m/s. Proximal ICA/CCA peak systolic ratio 1.5. Heterogenous irregular plaque. LEFT CAROTID CCA Velocities: Within normal limits. ICA Velocities Peak systolic 0.96 m/s. End diastolic 124 m/s. Proximal ICA/CCA peak systolic ratio 0.8. Heterogenous irregular plaque. VERTEBRAL ARTERIES: Stenosis of both vertebral arteries. Retrograde flow in the left vertebral arter y. SUBCLAVIAN ARTERIES: Stenosis of the left subclavian artery with blood pressure differential. OTHER: Elevated velocity in the external carotid arteries. Systolic velocity in the right external c arotid artery is 4.16 m/sec and in the left external carotid artery is 2.13 m/sec. IMPRESSION: 1. PLAQUE IN THE RIGHT AND LEFT CAROTID ARTERIES. 50- 69% STENOSIS OF THE RIGHT INTERNAL CAROTID ART CHIQUITA. 2. 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 3. STENOSIS OF THE VERTEBRAL ARTERIES. FLOW IN THE LEFT VERTEBRAL ARTERY IS RETROGRADE. STENOSIS OF THE LEFT SUBCLAVIAN ARTERY AND BLOOD PRESSURE DIFFERENTIAL. FINDINGS OF SUBCLAVIAN STEAL. COMMENT: Quality ID #[id number]: Velocity criteria are extrapolated from the diameter data as defined by t he Society of Radiologists in Ultrasound Consensus Conference. Radiology 2003: 229; 340-346. TECHNICAL DOCUMENTATION: JOB ID: [id number] [employer]- All Rights Reserved Reading location - IP/workstation name: [email or web address]
--- NOTE | 2017-08-11 15:09 | PDOC PROGRESS REPORT ---
Subjective Progress Note for:: 08/10/17 Subjective:: Doing better today. Headache markedly improved, denies palpitations or chest pain. Patient was noted overnight to have significantly higher blood pressures on the right arm than on the left. States it has been so for several years. Of not is that blood pressure systolic running low left side in spite of BP meds on hold -- did not get BP meds yesterday. Denies fever or chills, no nausea or vomiting. No recurrent syncope since in the hospital. Reason For Visit: RECURRENT SYNCOPE,HYPERTENSION Physical Exam Vital Signs: Temp Pulse Resp BP Pulse Ox 98.4 F 73 16 100/57 L 100 08/10/17 11:26 08/10/17 11:26 08/10/17 11:26 08/10/17 11:26 08/10/17 11:26 Intake & Output 08/09/17 08/10/17 08/11/17 06:59 06:59 06:59 Intake Total 240 Balance 240 Weight 57.6 kg GEN: NAD, well-developed, well-nourished CV: RRR, NL S1S2 LUNGS: CTA bilaterally ABDOMEN Soft, NT, +BS EXTERMITIES: No e/c/c NEURO: Alert, oriented 3, no acute weakness Results Laboratory Results: 08/10/17 03:50 08/10/17 03:50 08/10/17 08/10/17 03:50 03:50 WBC 2.5 L RBC 3.41 L Hgb 9.1 L Hct 27.1 L MCV 80 MCH 26.8 L MCHC 33.7 RDW 18.8 H Plt Count 145 L Seg Neutrophils % Not Reportable Lymphocytes % Not Reportable Monocytes % Not Reportable Eosinophils % Not Reportable Basophils % Not Reportable Absolute Neutrophils Not Reportable Absolute Lymphocytes Not Reportable Absolute Monocytes Not Reportable Absolute Eosinophils Not Reportable Absolute Basophils Not Reportable Sodium 135.3 L Potassium 3.9 Chloride 105 Carbon Dioxide 27 Anion Gap 4 L BUN 25 H Creatinine 1.22 Est GFR ( Amer) 52 L Est GFR (Non-Af Amer) 43 L Glucose 95 Calcium 8.6 Magnesium 2.1 08/09/17 17:05 Troponin I < 0.012 Impressions: Chest X-Ray 08/09/17 11:06 IMPRESSION: Nothing acute. The heart borderline size. Head CT 08/09/17 11:06 IMPRESSION: MILD CHRONIC CHANGES OF ATROPHY AND MICROVASCULAR ISCHEMIA. NO ACUTE PROCESS. EVIDENCE OF ACUTE STROKE: NO. Cervical Spine CT 08/09/17 11:07 IMPRESSION: CHRONIC DEGENERATIVE CHANGES. NO ACUTE FINDINGS. Assessment & Plan - Diagnosis (1) Syncope Is this a current diagnosis for this admission?: Yes Plan: Patient may be having syncope episodes secondary to hypotensive episodes. She may be on too much blood pressure medications. We will continue to hold blood pressure medication and check blood pressures. Also check orthostatics. -Echo and carotid Dopplers have been done today--follow-up results. (2) Hypertension Is this a current diagnosis for this admission?: Yes Plan: Currently controlled and in fact only low. It is possible blood pressure was being titrated up with the reading on the right side. We will continue to hold blood pressure medications on monitor blood pressures. (3) Anemia Is this a current diagnosis for this admission?: Yes Plan: H&H stable. We will continue to trend. (4) Leukopenia Is this a current diagnosis for this admission?: Yes Plan: Stable (5) Right carotid bruit Is this a current diagnosis for this admission?: Yes Plan: Workup in progress.
[2017-08-11] MEDS ORDERED: NORMAL SALINE 1000 ML 1,000 ML IV PRN (15:13)
[2017-08-11] MEDS: ACETAMINOPHEN 325 MG TABLET PO PRN (20:35)
[2017-08-12 08:05] LABS: ANION GAP 8 (5-19); BLOOD UREA NITROGEN 17 mg/dL (7-20); CALCIUM 8.6 mg/dL (8.4-10.2); CARBON DIOXIDE 25 mmol/L (22-30); CHLORIDE 108 mmol/L (98-107); GLUCOSE 100 mg/dL (75-110); POTASSIUM 4.1 mmol/L (3.6-5.0); SODIUM 141.1 mmol/L (137-145)
[2017-08-12 08:12] LABS: HEMATOCRIT 28.9 % (36.0-47.0); HEMOGLOBIN 9.6 g/dL (12.0-15.5); MEAN CORPUSCULAR HGB CONC 33.3 g/dL (32.0-36.0); MEAN CORPUSCULAR VOLUME 78 fl (80-97); PLATELET COUNT 153 10^3/uL (150-450); RED CELL DISTRIBUTION WIDTH 18.8 % (11.5-14.0)
[2017-08-12 08:31] LABS: ABSOLUTE LYMPHOCYTES# (MANUAL) 0.9 10^3/uL (0.5-4.7); ABSOLUTE MONOCYTES # (MANUAL) 0.2 10^3/uL (0.1-1.4); ABSOLUTE NEUTROPHILS# (MANUAL) 0.8 10^3/uL (1.7-8.2); ANISOCYTOSIS 2+; BASOPHILS % (MANUAL) 0 % (0-2); EOSINOPHILS % (MANUAL) 3 % (0-6); HYPOCHROMASIA SLIGHT; LYMPHOCYTES % (MANUAL) 45 % (13-45); MONOCYTES % (MANUAL) 9 % (3-13); PLATELET COMMENT ADEQUATE; POLYCHROMASIA SLIGHT; SEGMENTED NEUTROPHILS % (MAN) 43 % (42-78); TOTAL CELLS COUNTED 100
[2017-08-12 08:32] LABS: WHITE BLOOD COUNT 1.9 10^3/uL (4.0-10.5)
[2017-08-12] MEDS: ENOXAPARIN SODIUM INJ 30 MG/0.3 ML DISP.SYRIN SUBCUT SCH (09:15)
[2017-08-12 12:45] VITALS: BP 104/80
--- NOTE | 2017-08-12 13:00 | PDOC TRANSFER SUMMARY ---
General Admission Date/PCP: 08/09/17 14:10 MENDEZ BORJA DO Resuscitation Status: Full Code - Transfer Diagnosis (1) Syncope Is this a current diagnosis for this admission?: Yes (3) Hypertension Is this a current diagnosis for this admission?: Yes (4) Anemia Is this a current diagnosis for this admission?: Yes (5) Leukopenia Is this a current diagnosis for this admission?: Yes (6) Right carotid bruit Is this a current diagnosis for this admission?: Yes - Transfer Medications Home Medications: Lysine HCl [L-Lysine] 500 mg PO DAILY 08/09/17 Magnesium 250 mg PO DAILY 08/09/17 Multivit-Min/Iron/Folic/Lutein [Centrum Silver Women Tablet] 1 each PO DAILY 07/28 Atenolol [Tenormin 50 mg Tablet] 50 mg PO DAILY 08/10/17 Furosemide [Lasix 20 mg Tablet] 20 mg PO DAILY 08/10/17 Lisinopril/Hydrochlorothiazide [Lisinopril-Hctz 20-25 mg Tab] 1 tab PO DAILY 08/25 Transfer Medications: Current Medications Acetaminophen (Tylenol 325 Mg Tablet) 650 mg PO Q4HP PRN PRN Reason: FOR PAIN OR TEMP Stop: 09/08/17 15:58 Last Admin: 08/11/17 20:35 Dose: 650 mg Enoxaparin Sodium (Lovenox Inj 30 Mg/0.3 Ml Disp.Syrin) 30 mg SUBCUT DAILY [facility] Stop: 09/09/17 09:59 Last Admin: 08/12/17 09:15 Dose: 30 mg Sodium Chloride (Nacl 0.9% 1000 Ml Iv Soln) 1,000 mls @ 75 mls/hr IV CONTINUOUS PRN PRN Reason: THIS MED IS NOT "PRN" Stop: 09/10/17 15:12 Last Admin: 08/12/17 04:09 Dose: 1,000 ml Sodium Chloride (Saline Flush 2.5 Ml Monoject Prefil Syrin) 2.5 ml IV Q8 [facility] Stop: 09/08/17 21:59 Last Admin: 08/12/17 05:15 Dose: Not Given - Allergies Allergies/Adverse Reactions: No Known Allergies Allergy (Verified 08/09/17 10:54) Hospital Course Hospital Course: AUBRIE MCCULLOUGH is a 77 year old female with history of hypertension who presented to the [facility] ED after a syncopal episode at home. Patient reported climbing up steps on the porch getting ready to take her 7- year old great-granddaughter to school when she suddenly collapsed. She had no prodrome or aura. She did not think she lost consciousness or was out for a long time. No loss of urine or bladder continence, no shaking motions, no tongue biting. She got up after the episode and drove her great granddaughter to school. She denied chest pain, no fever or chills, no nausea vomiting. Initial evaluation including head and cervical CT scan that revealed no acute process. EKG showed sinus rhythm with LVH. Patient was admitted to hospitalist observation status for further evaluation and management. Of note is that patient reports history of syncope two other times in the past, once in January 2016 and the other on February 10, 2017. She also reports history of anemia and leukopenia and colonoscopy has been negative. EGD also apparently unremarkable and she has been treated for H. pylori infection in the past. She is seeing architecture department chair, Dr. Nam, here in [facility] and states she was being considered for a bone marrow biopsy. Workup of patient's recurrent syncope significant for exam revealing right carotid bruit. She had differential blood pressure readings in the right upper extremity and left upper extremity. Echocardiogram done on 08/10/17 revealed low normal EF, moderate MR. Of note is that patient had differential blood pressure reading on right upper extremity and left upper extremity. I suspect that patient may be having syncope episodes secondary to hypotensive episodes. She may be on too much blood pressure medications that may have been titrated up to the reading on the right upper extremity as outpatient. He was on 3 blood pressure medications consisting of lisinopril/HCTZ and atenolol 50 mg daily. Her blood pressures were held since admission by a and her blood pressures on the left have remained normal with most recent blood pressure 103/66, heart rate 80. Carotid Doppler study done on 08/10/17 revealed: 1- 50-69% stenosis in right internal carotid artery, 2. Stenosis of the right and left external carotid arteries, worse on the right 3 stenosis of the vertebral arteries. Flow in the left vertebral artery is retrograde. Stenosis of the left subclavian artery on blood pressure differentia. This was consistent with findings of subclavian steal I spoke with of vascular surgery at [facility], and will maintain, [place], because we do not have a vascular surgeon here. We are concerned since patient is having recurrent syncope episode. He believed the patient will need further evaluation and recommended transfer to medical service, and for them to consult him upon patient's arrival. Patient has been graciously been accepted by Dr. Martinez's service and she is being transferred in stable condition. Physical Exam Vital Signs: Temp Pulse Resp BP Pulse Ox 98.2 F 80 20 103/66 99 08/12/17 08:00 08/12/17 08:00 08/12/17 08:00 08/12/17 08:00 08/12/17 08:00 Intake & Output 08/11/17 08/12/17 08/13/17 06:59 06:59 06:59 Intake Total 690 1255 Balance 690 1255 Weight 61.2 kg GEN: NAD, well-developed, well-nourished CV: RRR, NL S1S2 LUNGS: CTA bilaterally ABDOMEN Soft, NT, +BS EXTERMITIES: No e/c/c NEURO: Alert, oriented 3, no acute weakness Results Laboratory Results: 08/12/17 07:24 08/12/17 07:24 08/12/17 08/12/17 07:24 07:24 WBC 1.9 L RBC 3.70 L Hgb 9.6 L Hct 28.9 L MCV 78 L MCH 26.0 L MCHC 33.3 RDW 18.8 H Plt Count 153 Seg Neutrophils % Not Reportable Lymphocytes % Not Reportable Monocytes % Not Reportable Eosinophils % Not Reportable Basophils % Not Reportable Absolute Neutrophils Not Reportable Absolute Lymphocytes Not Reportable Absolute Monocytes Not Reportable Absolute Eosinophils Not Reportable Absolute Basophils Not Reportable Sodium 141.1 Potassium 4.1 Chloride 108 H Carbon Dioxide 25 Anion Gap 8 BUN 17 Creatinine 0.92 Est GFR ( Amer) > 60 Est GFR (Non-Af Amer) > 60 Glucose 100 Calcium 8.6 08/09/17 17:05 Troponin I < 0.012 Impressions: Chest X-Ray 08/09/17 11:06 IMPRESSION: Nothing acute. The heart borderline size. Head CT 08/09/17 11:06 IMPRESSION: MILD CHRONIC CHANGES OF ATROPHY AND MICROVASCULAR ISCHEMIA. NO ACUTE PROCESS. EVIDENCE OF ACUTE STROKE: NO. Cervical Spine CT 08/09/17 11:07 IMPRESSION: CHRONIC DEGENERATIVE CHANGES. NO ACUTE FINDINGS. Carotid Doppler Study 08/10/17 00:00 IMPRESSION: 1. PLAQUE IN THE RIGHT AND LEFT CAROTID ARTERIES. 50- 69% STENOSIS OF THE RIGHT INTERNAL CAROTID ARTERY. 2. 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 3. STENOSIS OF THE VERTEBRAL ARTERIES. FLOW IN THE LEFT VERTEBRAL ARTERY IS RETROGRADE. STENOSIS OF THE LEFT SUBCLAVIAN ARTERY AND BLOOD PRESSURE DIFFERENTIAL. FINDINGS OF SUBCLAVIAN STEAL. Plan Time Spent: Greater than 30 Minutes
[2017-08-12 14:07] LABS: PATH REVIEW PATHOLOGIST REVIEWED
[2017-08-12 14:16] LABS: PATH REVIEW PATHOLOGIST REVIEWED
== END 2017-08-12 15:00 | disposition short-term general hospital (02) ==
LOC: ER 09:45 → EH 14:10 → 5 21:42
PROVIDERS: ADMIT Student in an Organized Health Care Education/Training Program; ATTEND Student in an Organized Health Care Education/Training Program
DX: R55 Syncope and collapse (principal); I10 Essential (primary) hypertension; D64.9 Anemia, unspecified; D72.819 Decreased white blood cell count, unspecified; R01.1 Cardiac murmur, unspecified; I65.23 Occlusion and stenosis of bilateral carotid arteries; R51 Headache; I25.10 Atherosclerotic heart disease of native coronary artery without angina pectoris; Z86.19 Personal history of other infectious and parasitic diseases; Z82.49 Family history of ischemic heart disease and other diseases of the circulatory system; Z79.899 Other long term (current) drug therapy
CPT/HCPCS: 93005; 99285; 36415 ×4; 82553; 82550; 83735; 85025 ×4; 80048 ×3; 80053; 84484; 93306; 93880; 71045; 70450; 72125; 93010; G0378 ×5; A9270 ×5; J3490 ×3; J1650 ×3; J7030

== ENCOUNTER → 2017-12-26 | Outpatient (CLI) | payer MEDICARE, OTHER ==
--- NOTE | 2017-12-26 17:32 | RADIOLOGY REPORT (SQ) ---
EXAM DESCRIPTION: VENOUS BILATERAL LOWER COMPLETED DATE/TIME: 12/26/2017 5:22 pm REASON FOR STUDY: EDEMA R60.0 LOCALIZED EDEMA COMPARISON: None. TECHNIQUE: Dynamic and static mares scale and color images acquired of both lower extremity venous sy stems. Selected spectral images acquired with additional compression and augmentation maneuvers. Imag es stored on PACS. LIMITATIONS: None. FINDINGS: RIGHT LEG COMMON FEMORAL AND FEMORAL: Normal phasicity, compression and augmentation. No visualized echogenic m aterial on mares scale. No defects on color images. POPLITEAL: Normal compression and augmentation. No visualized echogenic material on mares scale. No de fects on color images. CALF VESSELS: Normal compression and augmentation. No visualized echogenic material on mares scale. No defects on color image. GSV AND SSV: Normal compression. No visualized echogenic material on mares scale. No defects on color images. ANY DEEP VENOUS INSUFFICIENCY: Not evaluated. ANY EVIDENCE OF POPLITEAL CYST: No. OTHER: No other significant finding. LEFT LEG COMMON FEMORAL AND FEMORAL: Normal phasicity, compression and augmentation. No visualized echogenic m aterial on mares scale. No defects on color images. POPLITEAL: Normal compression and augmentation. No visualized echogenic material on mares scale. No de fects on color images. CALF VESSELS: Normal compression and augmentation. No visualized echogenic material on mares scale. No defects on color images. GSV AND SSV: Normal compression. No visualized echogenic material on mares scale. No defects on color images. ANY DEEP VENOUS INSUFFICIENCY: Not evaluated. ANY EVIDENCE POPLITEAL CYST: No. OTHER: No other significant finding. IMPRESSION: NO EVIDENCE DVT OR SVT IN EITHER LEG. TECHNICAL DOCUMENTATION: JOB ID: [id number] [employer]- All Rights Reserved Reading location - IP/workstation name: [email or web address]
== END ==
LOC: SP 16:27
PROVIDERS: ATTEND Family Medicine
DX: R60.0 Localized edema (principal)
CPT/HCPCS: 93970

== ENCOUNTER 2019-11-16 11:08 | Inpatient (IN) | payer MEDICARE, OTHER ==
[2019-11-16] MEDS ORDERED: CEFEPIME 2 GM/D5W RTU 2 GM/50 ML RTUPB IV ONE (11:41)
[2019-11-16] MEDS ORDERED: VANCOMYCIN HCL INJ 1000 MG VIAL IV ONE (11:53)
--- NOTE | 2019-11-16 11:53 | ER Document Report ---
ED General - General Chief Complaint: Fever Stated Complaint: FEVER - DR REFERRED Time Seen by Provider: 11/16/19 11:35 Notes: 79-year-old female 2 weeks post last chemotherapy catheter with AML presents with fever and neutropenia from Dr. Yenni toth's office. Mild fever and chills and weakness no other focal symptoms. Symptoms are moderate. Symptoms are present for about 2 to 3 days. Last chemo delayed secondary neutropenia. White count low, neutrophil 500 with temp 100.6 this morning. No localizing symptoms. Urine sent to the ED for chest x-ray and admission. TRAVEL OUTSIDE OF THE [place] IN LAST 30 DAYS: No - Related Data Allergies/Adverse Reactions: No Known Allergies Allergy (Verified 08/09/17 10:54) Past Medical History - Social History Smoking Status: Never Smoker Family History: Hypertension - Past Medical History Cardiac Medical History: Reports: Hx Coronary Artery Disease, Hx Hypertension - MEDICATED Denies: Hx Heart Attack Pulmonary Medical History: Denies: Hx Asthma, Hx Bronchitis, Hx COPD, Hx Pneumonia Neurological Medical History: Denies: Hx Cerebrovascular Accident, Hx Seizures Renal/ Medical History: Denies: Hx Peritoneal Dialysis GI Medical History: Denies: Hx Hepatitis, Hx Hiatal Hernia, Hx Ulcer Musculoskeletal Medical History: Reports Hx Arthritis Infectious Medical History: Denies: Hx Hepatitis Past Surgical History: Denies: Hx Hysterectomy, Hx Mastectomy, Hx Open Heart Surgery, Hx Pacemaker - Immunizations Hx Diphtheria, Pertussis, Tetanus Vaccination: Yes Hx Pneumococcal Vaccination: 02/09/16 Review of Systems - Review of Systems Notes: REVIEW OF SYSTEMS GEN: That of fever weakness ENT: Denies sore throat, nasal discharge, ear pain EYES: Denies blurry vision, eye pain, discharge CV: Denies chest pain, palpitations, edema RESP: Denies cough, shortness of breath, wheezing GI: Denies abdominal pain, nausea, vomiting, diarrhea MSK: Denies joint pain/swelling, edema, SKIN: Denies rash, skin lesions LYMPH: Denies swollen glands/lymph nodes NEURO: Denies headache, focal weakness or numbness, dizziness PSYCH: Denies depression, suicidal or homicidal ideation PHYSICAL EXAMINATION General: No acute distress, well-nourished Head: Atraumatic, normocephalic ENT: Mouth normal, oropharynx moist, no exudates or tonsillar enlargement. Cruz catheter clean dry intact on the right upper chest wall without tenderness. Eyes: Conjunctiva normal, pupils equal, lids normal Neck: No JVD, supple, no guarding CVS: Normal rate, regular rhythm, no murmurs Resp: No resp distress, equal and normal breath sounds bilaterally GI: Nondistended, soft, no tenderness to palpation, no rebound or guarding Ext: No deformities, no edema, normal range of motion in upper and lower ext Back: No CVA or midline TTP Skin: No rash, warm Lymphatic: No lymphadeopathy noted Neuro: Awake, alert. Face symmetric. GCS 15. Physical Exam - Vital signs Vitals: Temp Pulse Resp BP Pulse Ox 99.3 F 91 24 H 125/56 L 98 11/16/19 11:16 11/16/19 11:16 11/16/19 11:16 11/16/19 11:16 11/16/19 11:16 Course - Re-evaluation Re-evalutation: 11/16/19 12:10 Neutropenic fever vital signs stable No apparent source including line, on exam Discussed with Raffy steele chest x-ray urine culture panculture cefepime Vanco and admit This was done Chest x-ray pending Discussed with on way for admission - Vital Signs Vital signs: Temp Pulse Resp BP Pulse Ox 99.3 F 91 24 H 125/56 L 98 11/16/19 11:16 11/16/19 11:16 11/16/19 11:16 11/16/19 11:16 11/16/19 11:38 Discharge - Discharge Clinical Impression: Neutropenic fever Condition: Fair Disposition: ADMITTED INPATIENT Admitting Provider: Soto (Hospitalist) Unit Admitted: Medical Floor
[2019-11-16 12:36] LABS: VENOUS BLOOD BASE EXCESS 0.2 mmol/L; VENOUS BLOOD HCO3 24.6 mmol/L (20-32); VENOUS BLOOD PCO2 38.4 mmHg (35-63); VENOUS BLOOD PH 7.43 (7.30-7.42)
[2019-11-16 12:38] LABS: ABSOLUTE LYMPHOCYTES (AUTO) 0.5 10^3/uL (0.5-4.7); ABSOLUTE MONOCYTES (AUTO) 0.1 10^3/uL (0.1-1.4); BASOPHILS % (AUTO) 0.4 % (0-2); EOSINOPHILS % (AUTO) 2.4 % (0-6); HEMATOCRIT 20.6 % (36.0-47.0); MEAN CORPUSCULAR HEMOGLOBIN 33.5 pg (27.0-33.4); MEAN CORPUSCULAR HGB CONC 35.2 g/dL (32.0-36.0); MEAN CORPUSCULAR VOLUME 95 fl (80-97); MONOCYTES % (AUTO) 16.2 % (3-13); RED BLOOD COUNT 2.17 10^6/uL (3.72-5.28); RED CELL DISTRIBUTION WIDTH 17.2 % (11.5-14.0); TOTAL CELLS COUNTED % (AUTO) 100 %
[2019-11-16 12:47] LABS: INTERNATIONAL RATION (INR) 0.98
[2019-11-16 13:01] LABS: ALBUMIN 3.7 g/dL (3.5-5.0); ALKALINE PHOSPHATASE 89 U/L (38-126); ANION GAP 8 (5-19); ASPARTATE AMINO TRANSFERASE 22 U/L (14-36); BILIRUBIN,TOTAL 1.1 mg/dL (0.2-1.3); BLOOD UREA NITROGEN 24 mg/dL (7-20); CALCIUM 9.1 mg/dL (8.4-10.2); CARBON DIOXIDE 24 mmol/L (22-30); CHLORIDE 101 mmol/L (98-107); GLUCOSE 136 mg/dL (75-110); POTASSIUM 4.1 mmol/L (3.6-5.0); TOTAL PROTEIN 6.8 g/dL (6.3-8.2)
--- NOTE | 2019-11-16 13:11 | RADIOLOGY REPORT (SQ) ---
EXAM DESCRIPTION: CHEST SINGLE VIEW IMAGES COMPLETED DATE/TIME: 11/16/2019 12:56 pm REASON FOR STUDY: hx aml, fever, low wbc COMPARISON: PA view of the chest from 08/09/2017. EXAM PARAMETERS: NUMBER OF VIEWS: One view. TECHNIQUE: An AP view of the chest was obtained. RADIATION DOSE: NA LIMITATIONS: None. FINDINGS: LUNGS AND PLEURA: No consolidation, pleural effusion or pneumothorax. MEDIASTINUM AND HILAR STRUCTURES: No mediastinal or hilar contour abnormality. HEART AND VASCULAR STRUCTURES: The cardiac silhouette and pulmonary vasculature are within normal jolley its. BONES: Osteopenia. HARDWARE: The tip of the tunnel single lumen central venous catheter projects at the level of the cav oatrial junction. OTHER: No other finding. IMPRESSION: No acute cardiopulmonary process. TECHNICAL DOCUMENTATION: JOB ID: [id number] [employer]- All Rights Reserved Reading location - IP/workstation name: [email or web address]
[2019-11-16 13:20] LABS: WHITE BLOOD COUNT 0.6 10^3/uL (4.0-10.5)
[2019-11-16 13:21] LABS: HEMOGLOBIN 7.3 g/dL (12.0-15.5); PLATELET COUNT 58 10^3/uL (150-450)
[2019-11-16 13:36] LABS: ANISOCYTOSIS 1+; HYPOCHROMASIA SLIGHT; PLATELET COMMENT DECREASED
[2019-11-16] MEDS ORDERED: ONDANSETRON HCL INJ/PF 4 MG/2 ML SDV IV PRN (13:53)
[2019-11-16] MEDS ORDERED: ACETAMINOPHEN 325 MG TABLET PO PRN (13:53)
[2019-11-16] MEDS ORDERED: MAG HYDROX/AL HYDROX/SIMETH SUSP 30 ML UDCUP PO PRN (13:53)
[2019-11-16] MEDS ORDERED: PROMETHAZINE HCL INJ 25 MG/1 ML VIAL IV PRN (14:01)
--- NOTE | 2019-11-16 14:17 | PDOC H&P ---
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 Symptoms started in the last few days. She denies any abdominal pain. She did have an episode of loose stools today but otherwise has not had any significant diarrhea. Denies constipation. Denies any sore throat or shortness of breath or chest pain. Patient was noted to be neutropenic on blood work in the clinic and was referred to the ER by Dr. Rose and notified me. Of note, patient was diagnosed with AML towards the end of last year and has received 3 sessions of chemotherapy since May with last session being about 3 weeks ago. Past Medical History Cardiac Medical History: Reports: Hypertension - MEDICATED Denies: DVT, Myocardial Infarction, Pulmonary Embolism Pulmonary Medical History: Denies: Asthma, Bronchitis, Chronic Obstructive Pulmonary Disease (COPD), Pneumonia Musculoskeltal Medical History: Reports: Arthritis Hematology: Reports: Anemia Past Surgical History Past Surgical History: Reports: Vascular Surgery - right chest head Denies: Amputation, Hysterectomy, Mastectomy, Pacemaker Social History Information Source: Patient Smoking Status: Never Smoker Electronic Cigarette use?: No Frequency of Alcohol Use: None Hx Recreational Drug Use: No Drugs: None - Advance Directive Resuscitation Status: Do Not Resuscitate - dnr dni Family History Family History: CAD - mi in mother at 42yo, CVA, Hypertension Parental Family History Reviewed: Yes Children Family History Reviewed: Yes Sibling(s) Family History Reviewed.: Yes Medication/Allergy Allergies/Adverse Reactions: No Known Allergies Allergy (Verified 08/09/17 10:54) Review of Systems Constitutional: PRESENT: fever(s) Eyes: ABSENT: visual disturbances Nose, Mouth, and Throat: ABSENT: headache(s), sore throat Cardiovascular: ABSENT: chest pain Respiratory: ABSENT: cough, dyspnea, sputum Gastrointestinal: PRESENT: nausea, vomiting. ABSENT: abdominal pain, constipation Genitourinary: ABSENT: difficulty urinating, dysuria Integumentary: ABSENT: diaphoresis Neurological: ABSENT: confusion, dizziness Endocrine: ABSENT: polyuria Allergic/Immunologic: PRESENT: other - Denies rhinorrhea Physical Exam Vital Signs: Temp Pulse Resp BP Pulse Ox 100.1 F 91 10 L 135/55 H 100 11/16/19 12:30 11/16/19 11:16 11/16/19 13:29 11/16/19 13:30 11/16/19 13:30 Intake & Output 11/15/19 11/16/19 11/17/19 06:59 06:59 06:59 Intake Total 50 Balance 50 Weight 104.4 kg General appearance: PRESENT: no acute distress, cooperative, thin Head exam: PRESENT: normocephalic Mouth exam: PRESENT: neck supple Neck exam: ABSENT: JVD Respiratory exam: PRESENT: clear to auscultation sadia, unlabored. ABSENT: crackles, wheezes Cardiovascular exam: PRESENT: RRR, +S1, +S2. ABSENT: tachycardia GI/Abdominal exam: PRESENT: soft. ABSENT: distended, firm, guarding, rebound, rigid, tenderness Neurological exam: PRESENT: alert, awake, oriented to person, oriented to place, oriented to time, oriented to situation Psychiatric exam: ABSENT: agitated, anxious Focused psych exam: ABSENT: pressured speech Skin exam: ABSENT: jaundice Results Laboratory Results: 11/16/19 12:15 11/16/19 12:15 11/16/19 11/16/19 11/16/19 12:15 12:15 12:15 WBC 0.6 L* RBC 2.17 L Hgb 7.3 L Hct 20.6 L MCV 95 MCH 33.5 H MCHC 35.2 RDW 17.2 H Plt Count 58 L Seg Neutrophils % 8.0 L VBG pH 7.43 H VBG pCO2 38.4 VBG HCO3 24.6 VBG Base Excess 0.2 Sodium 132.7 L Potassium 4.1 Chloride 101 Carbon Dioxide 24 Anion Gap 8 BUN 24 H Creatinine 0.62 Est GFR ( Amer) > 60 Glucose 136 H Lactic Acid Calcium 9.1 Total Bilirubin 1.1 AST 22 Alkaline Phosphatase 89 Total Protein 6.8 Albumin 3.7 11/16/19 12:15 WBC RBC Hgb Hct MCV MCH MCHC RDW Plt Count Seg Neutrophils % VBG pH VBG pCO2 VBG HCO3 VBG Base Excess Sodium Potassium Chloride Carbon Dioxide Anion Gap BUN Creatinine Est GFR ( Amer) Glucose Lactic Acid 1.0 Calcium Total Bilirubin AST Alkaline Phosphatase Total Protein Albumin Impressions: Chest X-Ray 11/16/19 00:00 IMPRESSION: No acute cardiopulmonary process. Assessment and Plan - Diagnosis (1) Neutropenic fever Is this a current diagnosis for this admission?: Yes Plan: Likely secondary to antineoplastic therapy for AML. Patient will be admitted to medical floor. Blood cultures have been obtained. Will start on vancomycin and cefepime empirically. Chest x-ray is normal. Denies respiratory symptoms. Check urinalysis. ANC is 0. Awaiting manual differentiation. Neutropenic precautions. (2) AML (acute myeloblastic leukemia) Is this a current diagnosis for this admission?: Yes Plan: Diagnosed with AML end of 2019 and started on chemotherapy x3 with last session being [address] Rose consulted. DVT prophylaxis with Lovenox - reconsider if platelet drops below 50k. (3) Hypertension Is this a current diagnosis for this admission?: Yes Plan: We will resume her antihypertensive medications once med rec is confirmed. (4) Pancytopenia Is this a current diagnosis for this admission?: Yes Plan: 2/ ,alignancy and antineoplastic therapy. Will monitor. Transfuse irradiated products for Hb <7 or platelet <10k. - Time Time Spent with patient: 35 or more minutes
--- NOTE | 2019-11-16 14:58 | EKG REPORT ---
SEVERITY:- ABNORMAL ECG - SINUS RHYTHM LEFT VENTRICULAR HYPERTROPHY : Confirmed by: Ksenia Burnette MD 16-Nov-2019 14:57:27
[2019-11-16 17:20] LABS: APPEARANCE,URINE CLEAR; BILIRUBIN,URINE NEGATIVE (NEGATIVE); COLOR,URINE YELLOW; GLUCOSE, URINE NEGATIVE (NEGATIVE); KETONES,URINE NEGATIVE (NEGATIVE); LEUKOCYTE ESTERASE,URINE NEGATIVE (NEGATIVE); NITRITE,URINE NEGATIVE (NEGATIVE); PROTEIN,URINE NEGATIVE (NEGATIVE); URINE SPECIFIC GRAVITY 1.008; UROBILINOGEN,URINE NEGATIVE mg/dL (<2.0)
[2019-11-16] MEDS: CEFEPIME HCL 2 GM in DEXTROSE 5%-WATER 50 ML IV SCH (17:38)
[2019-11-16] MEDS ORDERED: CEFEPIME 2 GM/D5W RTU 2 GM/50 ML RTUPB IV SCH (22:00)
[2019-11-16] MEDS ORDERED: VANCOMYCIN HCL INJ 1000 MG VIAL IV SCH (22:00)
[2019-11-17] MEDS: CEFEPIME HCL 2 GM in DEXTROSE 5%-WATER 50 ML IV SCH ×3 (02:21→19:03)
[2019-11-17 07:14] LABS: ABSOLUTE LYMPHOCYTES (AUTO) 0.6 10^3/uL (0.5-4.7); ABSOLUTE NEUT (AUTO) 0.1 10^3/uL (1.7-8.2); BASOPHILS % (AUTO) 0.2 % (0-2); EOSINOPHILS % (AUTO) 2.5 % (0-6); HEMATOCRIT 19.5 % (36.0-47.0); LYMPHOCYTES % (AUTO) 83.4 % (13-45); MEAN CORPUSCULAR HEMOGLOBIN 33.6 pg (27.0-33.4); MEAN CORPUSCULAR HGB CONC 35.4 g/dL (32.0-36.0); MEAN CORPUSCULAR VOLUME 95 fl (80-97); MONOCYTES % (AUTO) 6.3 % (3-13); RED BLOOD COUNT 2.05 10^6/uL (3.72-5.28); RED CELL DISTRIBUTION WIDTH 17.7 % (11.5-14.0); SEGMENTED NEUTROPHILS % (AUTO) 7.6 % (42-78); TOTAL CELLS COUNTED % (AUTO) 100 %
[2019-11-17 07:28] LABS: ANION GAP 7 (5-19); BLOOD UREA NITROGEN 24 mg/dL (7-20); CALCIUM 9.1 mg/dL (8.4-10.2); CARBON DIOXIDE 25 mmol/L (22-30); CHLORIDE 103 mmol/L (98-107); GLUCOSE 112 mg/dL (75-110); POTASSIUM 4.3 mmol/L (3.6-5.0)
[2019-11-17 07:50] LABS: HEMOGLOBIN 6.9 g/dL (12.0-15.5); PLATELET COUNT 48 10^3/uL (150-450); WHITE BLOOD COUNT 0.7 10^3/uL (4.0-10.5)
[2019-11-17 07:55] LABS: ANISOCYTOSIS 1+; PLATELET COMMENT DECREASED
[2019-11-17] MEDS ORDERED: NORMAL SALINE 250 ML IV PRN (08:17)
--- NOTE | 2019-11-17 08:17 | PDOC CONSULTATION ---
Consultation Consult Date: 11/17/19 Provider Consulted: ABDOULAYE MARCUM Consult reason:: Hematology/Oncology consultation was requested for patient on active chemotherapy for AML admitted with neutropenic fever. 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 She is followed by Dr. Coleman at [facility] and recently received cycle 3 Vidaza which completed 10/20/2019. She was scheduled to start her next cycle, but her counts have been slow to recover. She presented to the office yesterday with temp of 104.4 and ANC of 0.0 She states that she has been feeling fine. No symptoms of infection. She is anxious to go home. Past Medical History Cardiac Medical History: Reports: Coronary Artery Disease, Hyperlipidema, Hypertension - MEDICATED Denies: DVT, Myocardial Infarction, Pulmonary Embolism Pulmonary Medical History: Denies: Asthma, Bronchitis, Chronic Obstructive Pulmonary Disease (COPD), Pneumonia Neurological Medical History: Denies: Seizures Malignancy Medical History: Reports: Leukemia GI Medical History: Denies: Hepatitis, Hiatal Hernia Musculoskeltal Medical History: Reports: Arthritis Psychiatric Medical History: Denies: Depression Hematology: Reports: Anemia Past Surgical History Past Surgical History: Reports: Vascular Surgery - right chest head, Other - Cataracts, kidney stone retrieval, tonsillectomy, bone marrow biopsies Denies: Amputation, Hysterectomy, Mastectomy, Pacemaker Social History Information Source: Patient Lives with: Family Smoking Status: Never Smoker Electronic Cigarette use?: No Frequency of Alcohol Use: None Hx Recreational Drug Use: No Drugs: None Hx Prescription Drug Abuse: No Past Social History Note: She is with 3 kids. No alcohol or tobacco history. - Advance Directive Resuscitation Status: Do Not Resuscitate - dnr dni Family History Family History: CAD - mi in mother at 42yo, CVA, Hypertension Parental Family History Reviewed: Yes - Mother age 42 of CAD. Father age 71 Children Family History Reviewed: Yes - Daughter with CVA Sibling(s) Family History Reviewed.: Yes Medication/Allergy Home Medications: Docusate Sodium [Colace 100 mg Capsule] 100 mg PO DAILY 11/16/19 Filgrastim [Neupogen Inj 300 Mcg/1ml Vial] 300 mcg SUBCUT DAILY 11/16/19 Isosorbide Mononitrate [Imdur 60 mg Tablet.er] 60 mg PO DAILY 11/16/19 Lysine 500 mg PO DAILY 11/16/19 Metoprolol Succinate [Toprol Xl] 200 mg PO DAILY 11/16/19 Mirtazapine [Remeron 15 mg Tablet] 15 mg PO QHS 11/16/19 Pantoprazole Sodium [Protonix [address] Tablet] 40 mg PO DAILY 11/16/19 Polyethylene Glycol 3350 [Miralax Powder 17 gm/Packet] 1 packet PO DAILY 11/16/19 No122/Iron/Folic Acid [ Multi Tablet] 1 each PO DAILY 11/16/19 Prochlorperazine Maleate [Compazine 10 mg Tablet] 10 mg PO DAILYP PRN 11/16/19 Sennosides [Senna] 8.6 mg PO DAILY 11/16/19 Spironolactone [Aldactone] 50 mg PO DAILY 11/16/19 Tacrolimus [Protopic] 1 applic TP DAILY 11/16/19 Thiamine HCl [Thiamine 100 mg Tablet] 100 mg PO DAILY 11/16/19 Tramadol HCl [Ultram] 50 mg PO DAILY 11/16/19 Allergies/Adverse Reactions: No Known Allergies Allergy (Verified 08/09/17 10:54) Review of Systems Constitutional: PRESENT: fever(s). ABSENT: headache(s) Eyes: ABSENT: visual disturbances Ears: ABSENT: hearing changes Nose, Mouth, and Throat: ABSENT: sore throat Cardiovascular: ABSENT: chest pain Respiratory: ABSENT: dyspnea Gastrointestinal: ABSENT: constipation, diarrhea, nausea Genitourinary: ABSENT: dysuria Integumentary: ABSENT: rash Neurological: ABSENT: confusion Hematologic/Lymphatic: ABSENT: easy bleeding Physical Exam Vital Signs: Temp Pulse Resp BP Pulse Ox 98.6 F 76 18 128/52 H 98 11/17/19 03:36 11/17/19 03:36 11/17/19 03:36 11/17/19 03:36 11/17/19 03:36 Intake & Output 11/16/19 11/17/19 11/18/19 06:59 06:59 06:59 Intake Total 390 Balance 390 Weight 49.8 kg General appearance: PRESENT: no acute distress, thin Head exam: PRESENT: normocephalic Eye exam: PRESENT: EOMI Mouth exam: PRESENT: tongue midline Neck exam: ABSENT: tenderness Respiratory exam: PRESENT: clear to auscultation sadia, unlabored Cardiovascular exam: PRESENT: RRR GI/Abdominal exam: PRESENT: soft. ABSENT: tenderness Extremities exam: ABSENT: pedal edema Musculoskeletal exam: PRESENT: normal inspection Neurological exam: PRESENT: alert, awake, oriented to person, oriented to place, oriented to time, oriented to situation Psychiatric exam: PRESENT: appropriate affect Skin exam: PRESENT: normal color Results Laboratory Results: 11/17/19 06:49 11/17/19 06:49 11/16/19 11/16/19 11/16/19 12:15 12:15 12:15 WBC 0.6 L* RBC 2.17 L Hgb 7.3 L Hct 20.6 L MCV 95 MCH 33.5 H MCHC 35.2 RDW 17.2 H Plt Count 58 L Seg Neutrophils % 8.0 L VBG pH 7.43 H VBG pCO2 38.4 VBG HCO3 24.6 VBG Base Excess 0.2 Sodium 132.7 L Potassium 4.1 Chloride 101 Carbon Dioxide 24 Anion Gap 8 BUN 24 H Creatinine 0.62 Est GFR ( Amer) > 60 Glucose 136 H Lactic Acid Calcium 9.1 Total Bilirubin 1.1 AST 22 Alkaline Phosphatase 89 Total Protein 6.8 Albumin 3.7 Urine Color Urine Appearance Urine pH Ur Specific Hugh[place] Urine Protein Urine Glucose (UA) Urine Ketones Urine Blood Urine Nitrite Ur Leukocyte Esterase Urine WBC (Auto) Urine RBC (Auto) 11/16/19 11/16/19 11/16/19 12:15 16:32 16:50 WBC RBC Hgb Hct MCV MCH MCHC RDW Plt Count Seg Neutrophils % VBG pH VBG pCO2 VBG HCO3 VBG Base Excess Sodium Potassium Chloride Carbon Dioxide Anion Gap BUN Creatinine Est GFR ( Amer) Glucose Lactic Acid 1.0 1.0 Calcium Total Bilirubin AST Alkaline Phosphatase Total Protein Albumin Urine Color YELLOW Urine Appearance CLEAR Urine pH 7.0 Ur Specific [place] 1.008 Urine Protein NEGATIVE Urine Glucose (UA) NEGATIVE Urine Ketones NEGATIVE Urine Blood NEGATIVE Urine Nitrite NEGATIVE Ur Leukocyte Esterase NEGATIVE Urine WBC (Auto) 0 Urine RBC (Auto) 0 11/16/19 11/17/19 11/17/19 18:49 06:49 06:49 WBC 0.7 L* RBC 2.05 L Hgb 6.9 L Hct 19.5 L MCV 95 MCH 33.6 H MCHC 35.4 RDW 17.7 H Plt Count 48 L Seg Neutrophils % 7.6 L VBG pH VBG pCO2 VBG HCO3 VBG Base Excess Sodium 135.1 L Potassium 4.3 Chloride 103 Carbon Dioxide 25 Anion Gap 7 BUN 24 H Creatinine 0.63 Est GFR ( Amer) > 60 Glucose 112 H Lactic Acid 1.0 Calcium 9.1 Total Bilirubin AST Alkaline Phosphatase Total Protein Albumin Urine Color Urine Appearance Urine pH Ur Specific [place] Urine Protein Urine Glucose (UA) Urine Ketones Urine Blood Urine Nitrite Ur Leukocyte Esterase Urine WBC (Auto) Urine RBC (Auto) Impressions: Chest X-Ray 11/16/19 00:00 IMPRESSION: No acute cardiopulmonary process. Assessment & Plan - Diagnosis (1) AML (acute myeloblastic leukemia) Qualifiers: Leukemia Active/Remission status: without remission Qualified Code(s): C92.00 - Acute myeloblastic leukemia, not having achieved remission Is this a current diagnosis for this admission?: Yes Plan: Current chemo is on hold. If counts do not recover, then will plan for patient to see Dr. Coleman for consideration of repeat bone marrow biopsy. (2) Neutropenic fever Is this a current diagnosis for this admission?: Yes Plan: On appropriate antibiotics. OK to discharge when ANC >1 and afebrile x 24 hours. Await cultures. (3) Pancytopenia Is this a current diagnosis for this admission?: Yes Plan: Continue transfusion support for HGB <8 and PLT <10. - Plan Summary Plan Summary: I will continue to follow her with you. Please call with any questions or concerns.
[2019-11-17] MEDS ORDERED: ENOXAPARIN SODIUM INJ 40 MG/0.4 ML DISP.SYRIN SUBCUT SCH (10:00)
--- NOTE | 2019-11-17 13:41 | PDOC PROGRESS REPORT ---
Subjective Progress Note for:: 11/17/19 Subjective:: Patient feels okay. She reports no fevers. She does understand why she has to wait for her white blood cell count to improve. Please also see Dr. Ellison's note. Reason For Visit: NEUTROPENIC FEVER,AML Physical Exam Vital Signs: Temp Pulse Resp BP Pulse Ox 97.8 F 75 16 114/48 L 95 11/17/19 11:50 11/17/19 11:50 11/17/19 11:50 11/17/19 11:50 11/17/19 11:50 Intake & Output 11/16/19 11/17/19 11/18/19 06:59 06:59 06:59 Intake Total 390 360 Balance 390 360 Weight 49.8 kg General appearance: PRESENT: no acute distress, cooperative, thin, well- developed Head exam: PRESENT: atraumatic, normocephalic Eye exam: PRESENT: conjunctiva pale. ABSENT: scleral icterus Ear exam: PRESENT: normal external ear exam. ABSENT: bleeding, drainage Mouth exam: PRESENT: moist, tongue midline Respiratory exam: PRESENT: clear to auscultation sadia, symmetrical, unlabored. ABSENT: prolonged expiratory phas, rales, rhonchi, tachypnea, wheezes Cardiovascular exam: PRESENT: RRR, +S1, +S2 GI/Abdominal exam: PRESENT: normal bowel sounds, soft. ABSENT: ascites, distended, tenderness Rectal exam: PRESENT: deferred Gentrourinary exam: ABSENT: indwelling catheter Extremities exam: ABSENT: pedal edema Musculoskeletal exam: PRESENT: ambulatory, normal inspection Neurological exam: PRESENT: alert, awake, oriented to person, oriented to place, oriented to time, oriented to situation, CN II-XII grossly intact. ABSENT: alte red, motor sensory deficit Psychiatric exam: PRESENT: appropriate affect. ABSENT: agitated, anxious Focused psych exam: ABSENT: delusional, paranoid, restlessness Skin exam: PRESENT: dry, warm. ABSENT: rash Results Laboratory Results: 11/17/19 06:49 11/17/19 06:49 11/16/19 11/16/19 11/16/19 16:32 16:50 18:49 WBC RBC Hgb Hct MCV MCH MCHC RDW Plt Count Seg Neutrophils % Sodium Potassium Chloride Carbon Dioxide Anion Gap BUN Creatinine Est GFR ( Amer) Glucose Lactic Acid 1.0 1.0 Calcium Urine Color YELLOW Urine Appearance CLEAR Urine pH 7.0 Ur Specific [place] 1.008 Urine Protein NEGATIVE Urine Glucose (UA) NEGATIVE Urine Ketones NEGATIVE Urine Blood NEGATIVE Urine Nitrite NEGATIVE Ur Leukocyte Esterase NEGATIVE Urine WBC (Auto) 0 Urine RBC (Auto) 0 Blood Type Antibody Screen 11/17/19 11/17/19 11/17/19 06:49 06:49 09:52 WBC 0.7 L* RBC 2.05 L Hgb 6.9 L Hct 19.5 L MCV 95 MCH 33.6 H MCHC 35.4 RDW 17.7 H Plt Count 48 L Seg Neutrophils % 7.6 L Sodium 135.1 L Potassium 4.3 Chloride 103 Carbon Dioxide 25 Anion Gap 7 BUN 24 H Creatinine 0.63 Est GFR ( Amer) > 60 Glucose 112 H Lactic Acid Calcium 9.1 Urine Color Urine Appearance Urine pH Ur Specific [place] Urine Protein Urine Glucose (UA) Urine Ketones Urine Blood Urine Nitrite Ur Leukocyte Esterase Urine WBC (Auto) Urine RBC (Auto) Blood Type A POSITIVE Antibody Screen NEGATIVE 11/16/19 12:15 Blood Blood Culture (PCR) - Final Staphylococcus Species Impressions: Chest X-Ray 11/16/19 00:00 IMPRESSION: No acute cardiopulmonary process. Assessment and Plan - Diagnosis (1) Neutropenic fever Is this a current diagnosis for this admission?: Yes Plan: Likely secondary to antineoplastic therapy for AML. Patient will be admitted to medical floor. Blood cultures have been obtained. Will start on vancomycin and cefepime empirically. Chest x-ray is normal. Denies respiratory symptoms. Check urinalysis. ANC is 0. Awaiting manual differentiation. Neutropenic precautions. 11/17/2019 Continue antibiotics. ANC is 0.1 today. (2) AML (acute myeloblastic leukemia) Qualifiers: Leukemia Active/Remission status: without remission Qualified Code(s): C92.00 - Acute myeloblastic leukemia, not having achieved remission Is this a current diagnosis for this admission?: Yes Plan: Diagnosed with AML end of 2018 and started on chemotherapy x3 with last session being [address] Rose consulted. DVT prophylaxis with Lovenox - reconsider if platelet drops below 50k. 11/17/2019 Oncology is following and coordinating with patient's primary oncologist (3) Pancytopenia Is this a current diagnosis for this admission?: Yes Plan: 07/12 ,alignancy and antineoplastic therapy. Will monitor. Transfuse irradiated products for Hb <7 or platelet <10k. 11/17/2019 Consider transfusions of platelets or packed red blood cells if needed (4) Hypertension Qualifiers: Hypertension type: essential hypertension Qualified Code(s): I10 - Essential (primary) hypertension Is this a current diagnosis for this admission?: Yes Plan: We will resume her antihypertensive medications once med rec is confirmed. 11/17/2019 Continue to monitor vital signs. Adjust medications accordingly. - Time Time Spent with patient: Less than 15 minutes Medications reviewed and adjusted accordingly: Yes Anticipated discharge: Home
[2019-11-17] MEDS ORDERED: PROCHLORPERAZINE MALEATE 10 MG TABLET PO PRN (18:20)
[2019-11-17] MEDS: VANCOMYCIN HCL 1,000 MG in DEXTROSE 5%-WATER 250 ML IV SCH (22:04)
[2019-11-18] MEDS: CEFEPIME HCL 2 GM in DEXTROSE 5%-WATER 50 ML IV SCH ×3 (02:54→17:20)
[2019-11-18 07:10] LABS: ABSOLUTE EOSINOPHILS # (AUTO) 0.1 10^3/uL (0.0-0.6); ABSOLUTE LYMPHOCYTES (AUTO) 0.7 10^3/uL (0.5-4.7); ABSOLUTE MONOCYTES (AUTO) 0.1 10^3/uL (0.1-1.4); ABSOLUTE NEUT (AUTO) 0.1 10^3/uL (1.7-8.2); BASOPHILS % (AUTO) 0.4 % (0-2); EOSINOPHILS % (AUTO) 7.2 % (0-6); HEMATOCRIT 29.4 % (36.0-47.0); LYMPHOCYTES % (AUTO) 74.4 % (13-45); MEAN CORPUSCULAR HEMOGLOBIN 32.3 pg (27.0-33.4); MONOCYTES % (AUTO) 10.1 % (3-13); RED BLOOD COUNT 3.28 10^6/uL (3.72-5.28); RED CELL DISTRIBUTION WIDTH 15.3 % (11.5-14.0); SEGMENTED NEUTROPHILS % (AUTO) 7.9 % (42-78); TOTAL CELLS COUNTED % (AUTO) 100 %
[2019-11-18 08:24] LABS: WHITE BLOOD COUNT 0.9 10^3/uL (4.0-10.5)
[2019-11-18 08:25] LABS: HEMOGLOBIN 10.6 g/dL (12.0-15.5); MEAN CORPUSCULAR VOLUME 90 fl (80-97)
[2019-11-18 08:26] LABS: PLATELET COUNT 28 10^3/uL (150-450)
[2019-11-18 08:36] LABS: ANISOCYTOSIS SLIGHT; OVALOCYTES SLIGHT
[2019-11-18 08:37] LABS: PLATELET COMMENT DECREASED; POLYCHROMASIA SLIGHT; TEAR DROP CELLS SLIGHT
[2019-11-18] MEDS ORDERED: (PENDING PHARMACY ID) (Metoprolol Succinate [Toprol Xl] 200 MG) PO SCH (10:00)
[2019-11-18] MEDS ORDERED: (PENDING PHARMACY ID) (Spironolactone [Aldactone] 50 MG) PO SCH (10:00)
[2019-11-18] MEDS ORDERED: (PENDING PHARMACY ID) (Prenatal No122/Iron/Folic Acid [Prenatal Multi Tablet] 1 EACH) PO SCH (10:00)
[2019-11-18] MEDS: POLYETHYLENE GLYCOL 3350 POWDER 17 GM/1 PACKET PO SCH ×2 (10:00→10:10)
[2019-11-18] MEDS: PRENATAL VITAMIN W DHA CAPSULE PO SCH (10:10)
[2019-11-18] MEDS: METOPROLOL SUCCINATE 50 MG TAB.SR.24H PO SCH (10:10)
[2019-11-18] MEDS: ISOSORBIDE MONONITRATE 60 MG TAB.ER.24H PO SCH (10:10)
[2019-11-18] MEDS: DOCUSATE SODIUM 100 MG CAPSULE PO SCH (10:10)
[2019-11-18] MEDS: TRAMADOL HCL 50 MG TABLET PO SCH (10:10)
[2019-11-18] MEDS: PANTOPRAZOLE SODIUM 40 MG TABLET.DR PO SCH (10:10)
[2019-11-18] MEDS: SPIRONOLACTONE 25 MG TABLET PO SCH (10:11)
[2019-11-18] MEDS: THIAMINE HCL 100 MG TABLET PO SCH (10:12)
--- NOTE | 2019-11-18 13:20 | PDOC PROGRESS REPORT ---
Subjective Progress Note for:: 11/18/19 Subjective:: Once again the patient is resting comfortably in bed. Her only issue is that it is time to change her central line dressing. Reason For Visit: NEUTROPENIC FEVER,AML Physical Exam Vital Signs: Temp Pulse Resp BP Pulse Ox 98.3 F 67 12 129/70 H 100 11/18/19 12:05 11/18/19 12:05 11/18/19 12:05 11/18/19 12:05 11/18/19 12:05 Intake & Output 11/17/19 11/18/19 11/19/19 06:59 06:59 06:59 Intake Total 390 2130 50 Balance 390 2130 50 Weight 49.8 kg 49.8 kg 49.8 kg General appearance: PRESENT: no acute distress, cooperative, well-developed Eye exam: PRESENT: conjunctiva pale. ABSENT: scleral icterus Ear exam: PRESENT: normal external ear exam. ABSENT: bleeding, drainage Respiratory exam: PRESENT: clear to auscultation sadia, symmetrical, unlabored. ABSENT: prolonged expiratory phas, rales, rhonchi, tachypnea, wheezes Cardiovascular exam: PRESENT: RRR, +S1, +S2 GI/Abdominal exam: PRESENT: normal bowel sounds, soft. ABSENT: distended, guarding, tenderness Rectal exam: PRESENT: deferred Gentrourinary exam: ABSENT: indwelling catheter Extremities exam: ABSENT: calf tenderness, pedal edema Musculoskeletal exam: PRESENT: ambulatory, normal inspection. ABSENT: deformity Neurological exam: PRESENT: alert, awake, oriented to person, oriented to place, oriented to time, oriented to situation, CN II-XII grossly intact. ABSENT: altered Psychiatric exam: PRESENT: appropriate affect. ABSENT: agitated, anxious Focused psych exam: ABSENT: delusional, paranoid, restlessness Skin exam: PRESENT: dry, pallor, warm. ABSENT: rash Results Laboratory Results: 11/18/19 06:51 11/17/19 06:49 11/17/19 11/18/19 09:52 06:51 WBC 0.9 L* RBC 3.28 L Hgb 10.6 L D Hct 29.4 L MCV 90 D MCH 32.3 MCHC 36.0 RDW 15.3 H Plt Count 28 L* Seg Neutrophils % 7.9 L Blood Type A POSITIVE Antibody Screen NEGATIVE 11/16/19 12:15 Blood Blood Culture (PCR) - Final Staphylococcus Species 11/16/19 16:50 Clean Catch Midstream Urine Culture - Final NO GROWTH 2 DAYS Impressions: Chest X-Ray 11/16/19 00:00 IMPRESSION: No acute cardiopulmonary process. Assessment and Plan - Diagnosis (1) Neutropenic fever Is this a current diagnosis for this admission?: Yes Plan: Likely secondary to antineoplastic therapy for AML. Patient will be admitted to medical floor. Blood cultures have been obtained. Will start on vancomycin and cefepime empirically. Chest x-ray is normal. Denies respiratory symptoms. Check urinalysis. ANC is 0. Awaiting manual differentiation. Neutropenic precautions. 11/17/2019 Continue antibiotics. ANC is 0.1 today. 11/18/[address] Bullard. T-max since the afternoon of November 15 has been 99.2. The majority of temperatures have been below 99 F. We are continuing antibiotic therapy. We are checking a CBC daily. Dr. Bullard is deciding about sending the patient home before the absolute neutrophil count is 1000 as long as she has been afebrile. Will review tomorrow's CBC and discussed with Dr. Bullard. (2) AML (acute myeloblastic leukemia) Qualifiers: Leukemia Active/Remission status: without remission Qualified Code(s): C92.00 - Acute myeloblastic leukemia, not having achieved remission Is this a current diagnosis for this admission?: Yes Plan: Diagnosed with AML end of 2018 and started on chemotherapy x3 with last session being [address] Rose consulted. DVT prophylaxis with Lovenox - reconsider if platelet drops below 50k. 11/17/2019 Oncology is following and coordinating with patient's primary oncologist 11/18/2019 Resume chemotherapy after discharge or consider repeat bone marrow study (3) Pancytopenia Is this a current diagnosis for this admission?: Yes Plan: 2/ ,alignancy and antineoplastic therapy. Will monitor. Transfuse irradiated products for Hb <7 or platelet <10k. 11/17/2019 Consider transfusions of platelets or packed red blood cells if needed 11/18/2019 The patient received 2 units of packed red blood cells today. Platelet count unfortunately is decreasing. Transfusion parameters as above. (4) Hypertension Qualifiers: Hypertension type: essential hypertension Qualified Code(s): I10 - Essential (primary) hypertension Is this a current diagnosis for this admission?: Yes Plan: We will resume her antihypertensive medications once med rec is confirmed. 11/17/2019 Continue to monitor vital signs. Adjust medications accordingly. 11/18/2019 Good blood pressure control on current regimen. No changes at this time. - Time Time Spent with patient: Less than 15 minutes Medications reviewed and adjusted accordingly: Yes Anticipated discharge: Home Within: Other - Based on absolute neutrophil count and fever
[2019-11-18] MEDS: VANCOMYCIN HCL 1,000 MG in DEXTROSE 5%-WATER 250 ML IV SCH (14:31)
[2019-11-19] MEDS: CEFEPIME HCL 2 GM in DEXTROSE 5%-WATER 50 ML IV SCH ×2 (02:19→09:33)
[2019-11-19 07:35] LABS: HEMATOCRIT 30.9 % (36.0-47.0); HEMOGLOBIN 10.8 g/dL (12.0-15.5); MEAN CORPUSCULAR HEMOGLOBIN 31.9 pg (27.0-33.4); MEAN CORPUSCULAR VOLUME 91 fl (80-97); RED BLOOD COUNT 3.38 10^6/uL (3.72-5.28); RED CELL DISTRIBUTION WIDTH 14.8 % (11.5-14.0)
[2019-11-19 07:51] LABS: ANION GAP 5 (5-19); BLOOD UREA NITROGEN 20 mg/dL (7-20); CALCIUM 8.8 mg/dL (8.4-10.2); CARBON DIOXIDE 22 mmol/L (22-30); CHLORIDE 106 mmol/L (98-107); GLUCOSE 114 mg/dL (75-110); POTASSIUM 4.1 mmol/L (3.6-5.0)
--- NOTE | 2019-11-19 07:55 | PDOC PROGRESS REPORT ---
Subjective Progress Note for:: 11/19/19 Subjective:: Patient states that she is feeling well and is anxious to go home. No complaints, except that she is not hungry. ROS: She denies dyspnea, chest pain, nausea, constipation. Reason For Visit: NEUTROPENIC FEVER,AML Physical Exam Vital Signs: Temp Pulse Resp BP Pulse Ox 98.5 F 90 17 126/72 H 93 11/18/19 23:25 11/18/19 23:25 11/18/19 23:25 11/18/19 23:25 11/18/19 23:25 Intake & Output 11/18/19 11/19/19 11/20/19 06:59 06:59 06:59 Intake Total 2130 1140 Balance 2130 1140 Weight 49.8 kg 49.8 kg General appearance: PRESENT: no acute distress, thin Head exam: PRESENT: atraumatic Respiratory exam: PRESENT: clear to auscultation sadia, unlabored Cardiovascular exam: PRESENT: RRR Neurological exam: PRESENT: alert, awake, oriented to person, oriented to place, oriented to time, oriented to situation Psychiatric exam: PRESENT: appropriate affect Skin exam: PRESENT: normal color Additional comments: She has been afebrile for over 48 hours. Results Laboratory Results: 11/18/19 06:51 WBC 0.9 L* RBC 3.28 L Hgb 10.6 L D Hct 29.4 L MCV 90 D MCH 32.3 MCHC 36.0 RDW 15.3 H Plt Count 28 L* Seg Neutrophils % 7.9 L 11/16/19 12:15 Blood Blood Culture (PCR) - Final Staphylococcus Species 11/16/19 16:50 Clean Catch Midstream Urine Culture - Final NO GROWTH 2 DAYS Impressions: Chest X-Ray 11/16/19 00:00 IMPRESSION: No acute cardiopulmonary process. Assessment & Plan - Diagnosis (1) AML (acute myeloblastic leukemia) Qualifiers: Leukemia Active/Remission status: without remission Qualified Code(s): C92.00 - Acute myeloblastic leukemia, not having achieved remission Is this a current diagnosis for this admission?: Yes Plan: Treatment on hold until counts recover. NO bone marrow growth factors, as these are contraindicated in this situation. (2) Neutropenic fever Is this a current diagnosis for this admission?: Yes Plan: Fever has resolved. Await today's CBC. (3) Pancytopenia Is this a current diagnosis for this admission?: Yes Plan: Transfuse as needed. Await today's CBC. - Time Time Spent with patient: Less than 15 minutes
[2019-11-19 08:05] LABS: ABSOLUTE LYMPHOCYTES# (MANUAL) 0.8 10^3/uL (0.5-4.7); ABSOLUTE MONOCYTES # (MANUAL) 0.1 10^3/uL (0.1-1.4); BASOPHILS % (MANUAL) 0 % (0-2); EOSINOPHILS % (MANUAL) 2 % (0-6); MONOCYTES % (MANUAL) 8 % (3-13); SEGMENTED NEUTROPHILS % (MAN) 18 % (42-78); TOTAL CELLS COUNTED 50
[2019-11-19 08:06] LABS: PLATELET COMMENT DECREASED
[2019-11-19 08:08] LABS: LYMPHOCYTES % (MANUAL) 68 % (13-45)
[2019-11-19 08:11] LABS: PLATELET COUNT 22 10^3/uL (150-450); WHITE BLOOD COUNT 1.1 10^3/uL (4.0-10.5)
[2019-11-19] MEDS: THIAMINE HCL 100 MG TABLET PO SCH (09:30)
[2019-11-19] MEDS: SPIRONOLACTONE 25 MG TABLET PO SCH (09:31)
[2019-11-19] MEDS: PANTOPRAZOLE SODIUM 40 MG TABLET.DR PO SCH (09:31)
[2019-11-19] MEDS: PRENATAL VITAMIN W DHA CAPSULE PO SCH (09:31)
[2019-11-19] MEDS: DOCUSATE SODIUM 100 MG CAPSULE PO SCH (09:31)
[2019-11-19] MEDS: ISOSORBIDE MONONITRATE 60 MG TAB.ER.24H PO SCH (09:31)
[2019-11-19] MEDS: POLYETHYLENE GLYCOL 3350 POWDER 17 GM/1 PACKET PO SCH (09:32)
[2019-11-19] MEDS: TRAMADOL HCL 50 MG TABLET PO SCH (09:32)
[2019-11-19] MEDS: METOPROLOL SUCCINATE 50 MG TAB.SR.24H PO SCH (09:32)
[2019-11-19 10:22] LABS: PATH REVIEW PATHOLOGIST REVIEWED
[2019-11-19 11:46] VITALS: BP 119/57
[2019-11-19] MEDS: VANCOMYCIN HCL 1,000 MG in DEXTROSE 5%-WATER 250 ML IV SCH (13:45)
--- NOTE | 2019-11-19 13:46 | PDOC DISCHARGE SUMMARY ---
Impression - Admit/DC Date/PCP Admission Date/Primary Care Provider: 11/16/19 12:30 Discharge Date: 11/19/19 - Discharge Diagnosis (1) Neutropenic fever Is this a current diagnosis for this admission?: Yes (2) AML (acute myeloblastic leukemia) Is this a current diagnosis for this admission?: Yes (3) Pancytopenia Is this a current diagnosis for this admission?: Yes (4) Hypertension Is this a current diagnosis for this admission?: Yes - Additional Information Resuscitation Status: Do Not Resuscitate - dnr dni Discharge Diet: As Tolerated Referrals: ABDOULAYE MARCUM MD [ACTIVE STAFF] - 11/23/19 10:15 am (For CBC and possible treatment. ) Prescriptions: Amoxicillin/Potassium Clav [Augmentin 875-125 Tablet] 1 tab PO Q12 7 Days #14 tablet Home Medications: Docusate Sodium [Colace 100 mg Capsule] 100 mg PO DAILY 11/16/19 Isosorbide Mononitrate [Imdur 60 mg Tablet.er] 60 mg PO DAILY 11/16/19 Lysine 500 mg PO DAILY 11/16/19 Metoprolol Succinate [Toprol Xl] 200 mg PO DAILY 11/16/19 Pantoprazole Sodium [Protonix [address] Tablet] 40 mg PO DAILY 11/16/19 Polyethylene Glycol 3350 [Miralax Powder 17 gm/Packet] 1 packet PO DAILY No122/Iron/Folic Acid [ Multi Tablet] 1 each PO DAILY 11/16/19 Prochlorperazine Maleate [Compazine 10 mg Tablet] 10 mg PO DAILYP PRN 11/16/19 Sennosides [Senna] 8.6 mg PO DAILY 11/16/19 Spironolactone [Aldactone] 50 mg PO DAILY 11/16/19 Tacrolimus [Protopic] 1 applic TP DAILY 11/16/19 Thiamine HCl [Thiamine 100 mg Tablet] 100 mg PO DAILY 11/16/19 Tramadol HCl [Ultram] 50 mg PO DAILY 11/16/19 Acetaminophen [Tylenol 325 mg Tablet] 650 mg PO Q4HP PRN tablet 11/19/19 Amoxicillin/Potassium Clav [Augmentin 875-125 Tablet] 1 tab PO Q12 7 Days #14 tablet 11/19/19 History of Present Illiness History of Present Illness: AUBRIE MCCULLOUGH is a 79 year old female with a 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 Symptoms started in the last few days. She denies any abdominal pain. She did have an episode of loose stools today but otherwise has not had any significant diarrhea. Denies constipation. Denies any sore throat or shortness of breath or chest pain. Patient was noted to be neutropenic on blood work in the clinic and was referred to the ER by Dr. Rose and notified me. Of note, patient was diagnosed with AML towards the end of last year and has received 3 sessions of chemotherapy since May with last session being about 3 weeks ago. Hospital Course Hospital Course: (1) Neutropenic fever Is this a current diagnosis for this admission?: Yes Plan: Likely secondary to antineoplastic therapy for AML. Patient will be admitted to medical floor. Blood cultures have been obtained. Will start on vancomycin and cefepime empirically. Chest x-ray is normal. Denies respiratory symptoms. Check urinalysis. ANC is 0. Awaiting manual differentiation. Neutropenic precautions. 11/17/2019 Continue antibiotics. ANC is 0.1 today. 11/18/[address] Bullard. T-max since the afternoon of November 15 has been 99.2. The majority of temperatures have been below 99 F. We are continuing antibiotic therapy. We are checking a CBC daily. Dr. Bullard is deciding about sending the patient home before the absolute neutrophil count is 1000 as long as she has been afebrile. Will review tomorrow's CBC and discussed with Dr. Bullard. 11/19/2019 White blood cell count only slightly improved. Reviewed with Dr. Bullard. Will discharge patient to home with 7 more days of Augmentin. She will follow-up with Dr. Bernal as an outpatient (2) AML (acute myeloblastic leukemia) Qualifiers: Leukemia Active/Remission status: without remission Qualified Code(s): C92.00 - Acute myeloblastic leukemia, not having achieved remission Is this a current diagnosis for this admission?: Yes Plan: Diagnosed with AML end of 2018 and started on chemotherapy x3 with last session being [address] Rose consulted. DVT prophylaxis with Lovenox - reconsider if platelet drops below 50k. 11/17/2019 Oncology is following and coordinating with patient's primary oncologist 11/18/2019 Resume chemotherapy after discharge or consider repeat bone marrow study 11/19/2019 To be determined by the patient's oncologists (3) Pancytopenia Is this a current diagnosis for this admission?: Yes Plan: 07/12 ,alignancy and antineoplastic therapy. Will monitor. Transfuse irradiated products for Hb <7 or platelet <10k. 11/17/2019 Consider transfusions of platelets or packed red blood cells if needed 11/18/2019 The patient received 2 units of packed red blood cells today. Platelet count unfortunately is decreasing. Transfusion parameters as above. 11/19/2019 Minimal improvement however no decline. As noted above patient will discharge home when there is less risk of shabnam infection. (4) Hypertension Qualifiers: Hypertension type: essential hypertension Qualified Code(s): I10 - Essent ial (primary) hypertension Is this a current diagnosis for this admission?: Yes Plan: We will resume her antihypertensive medications once med rec is confirmed. 11/17/2019 Continue to monitor vital signs. Adjust medications accordingly. 11/18/2019 Good blood pressure control on current regimen. No changes at this time. 11/19/2019 Continue home regimen Physical Exam Vital Signs: Temp Pulse Resp BP Pulse Ox 98.7 F 62 18 119/57 L 98 11/19/19 11:45 11/19/19 11:45 11/19/19 11:45 11/19/19 11:45 11/19/19 11:45 Intake & Output 11/18/19 11/19/19 11/20/19 06:59 06:59 06:59 Intake Total 2130 1140 290 Balance 2130 1140 290 Weight 49.8 kg 49.8 kg General appearance: PRESENT: no acute distress Eye exam: PRESENT: conjunctiva pale. ABSENT: scleral icterus Respiratory exam: PRESENT: clear to auscultation sadia, symmetrical, unlabored. ABSENT: rales, rhonchi, tachypnea, wheezes Cardiovascular exam: PRESENT: RRR, +S1, +S2 GI/Abdominal exam: PRESENT: normal bowel sounds, soft. ABSENT: distended, guarding, tenderness Neurological exam: PRESENT: alert, awake, oriented to person, oriented to place, oriented to time, oriented to situation, CN II-XII grossly intact. ABSENT: altered Psychiatric exam: PRESENT: appropriate affect. ABSENT: agitated, anxious Results Laboratory Results: WBC 1.1 10^3/uL (4.0-10.5) L* 11/19/19 06:59 RBC 3.38 10^6/uL (3.72-5.28) L 11/19/19 06:59 Hgb 10.8 g/dL (12.0-15.5) L 11/19/19 06:59 Hct 30.9 % (36.0-47.0) L 11/19/19 06:59 MCV 91 fl (80-97) 11/19/19 06:59 MCH 31.9 pg (27.0-33.4) 11/19/19 06:59 MCHC 35.0 g/dL (32.0-36.0) 11/19/19 06:59 RDW 14.8 % (11.5-14.0) H 11/19/19 06:59 Plt Count 22 10^3/uL (150-450) L* 11/19/19 06:59 Lymph % (Auto) Not Reportable 11/19/19 06:59 Keith % (Auto) Not Reportable 11/19/19 06:59 Eos % (Auto) Not Reportable 11/19/19 06:59 Baso % (Auto) Not Reportable 11/19/19 06:59 Absolute Neuts (auto) Not Reportable 11/19/19 06:59 Absolute Lymphs (auto) Not Reportable 11/19/19 06:59 Absolute Monos (auto) Not Reportable 11/19/19 06:59 Absolute Eos (auto) Not Reportable 11/19/19 06:59 Absolute Basos (auto) Not Reportable 11/19/19 06:59 Total Counted 50 11/19/19 06:59 Seg Neutrophils % Not Reportable 11/19/19 06:59 Seg Neuts % (Manual) 18 % (42-78) L 11/19/19 06:59 Lymphocytes % (Manual) 68 % (13-45) H 11/19/19 06:59 Atypical Lymphs % 4 % (0) 11/19/19 06:59 Monocytes % (Manual) 8 % (3-13) 11/19/19 06:59 Eosinophils % (Manual) 2 % (0-6) 11/19/19 06:59 Basophils % (Manual) 0 % (0-2) 11/19/19 06:59 Abs Neuts (Manual) 0.2 10^3/uL (1.7-8.2) L 11/19/19 06:59 Abs Lymphs (Manual) 0.8 10^3/uL (0.5-4.7) 11/19/19 06:59 Abs Monocytes (Manual) 0.1 10^3/uL (0.1-1.4) 11/19/19 06:59 Absolute Eos (Manual) 0.0 10^3/uL (0.0-0.6) 11/19/19 06:59 Abs Basophils (Manual) 0.0 10^3/uL (0.0-0.2) 11/19/19 06:59 Platelet Comment DECREASED 11/19/19 06:59 Polychromasia SLIGHT 11/18/19 06:51 Hypochromasia SLIGHT 11/16/19 12:15 Anisocytosis SLIGHT 11/18/19 06:51 Macrocytosis SLIGHT 11/16/19 12:15 Tear Drop Cells SLIGHT 11/18/19 06:51 Ovalocytes SLIGHT 11/18/19 06:51 Acanthocytes (Spur) SLIGHT 11/19/19 06:59 PT 13.0 SEC (11.4-15.4) 11/16/19 12:15 INR 0.98 11/16/19 12:15 VBG pH 7.43 (7.30-7.42) H 11/16/19 12:15 VBG pCO2 38.4 mmHg (35-63) 11/16/19 12:15 VBG HCO3 24.6 mmol/L (20-32) 11/16/19 12:15 VBG Base Excess 0.2 mmol/L 11/16/19 12:15 Sodium 132.7 mmol/L (137-145) L 11/19/19 06:59 Potassium 4.1 mmol/L (3.6-5.0) 11/19/19 06:59 Chloride 106 mmol/L (98-107) 11/19/19 06:59 Carbon Dioxide 22 mmol/L (22-30) 11/19/19 06:59 Anion Gap 5 (5-19) 11/19/19 06:59 BUN 20 mg/dL (7-20) 11/19/19 06:59 Creatinine 0.57 mg/dL (0.52-1.25) 11/19/19 06:59 Est GFR ( Amer) > 60 (>60) 11/19/19 06:59 Est GFR (MDRD) Non-Af > 60 (>60) 11/19/19 06:59 Glucose 114 mg/dL (75-110) H 11/19/19 06:59 Lactic Acid 1.0 mmol/L (0.7-2.1) 11/16/19 18:49 Calcium 8.8 mg/dL (8.4-10.2) 11/19/19 06:59 Magnesium 1.7 mg/dL (1.6-2.3) 11/19/19 06:59 Total Bilirubin 1.1 mg/dL (0.2-1.3) 11/16/19 12:15 Direct Bilirubin 0.0 mg/dL (0.0-0.4) 11/16/19 12:15 Neonat Total Bilirubin Not Reportable 11/16/19 12:15 Neonat Direct Bilirubin Not Reportable 11/16/19 12:15 Neonat Indirect Bili Not Reportable 11/16/19 12:15 AST 22 U/L (14-36) 11/16/19 12:15 ALT 20 U/L (<35) 11/16/19 12:15 Alkaline Phosphatase 89 U/L (38-126) 11/16/19 12:15 Total Protein 6.8 g/dL (6.3-8.2) 11/16/19 12:15 Albumin 3.7 g/dL (3.5-5.0) 11/16/19 12:15 Urine Color YELLOW 11/16/19 16:50 Urine Appearance CLEAR 11/16/19 16:50 Urine pH 7.0 (5.0-9.0) 11/16/19 16:50 Ur Specific [place] 1.008 11/16/19 16:50 Urine Protein NEGATIVE mg/dL (NEGATIVE) 11/16/19 16:50 Urine Glucose (UA) NEGATIVE mg/dL (NEGATIVE) 11/16/19 16:50 Urine Ketones NEGATIVE mg/dL (NEGATIVE) 11/16/19 16:50 Urine Blood NEGATIVE (NEGATIVE) 11/16/19 16:50 Urine Nitrite NEGATIVE (NEGATIVE) 11/16/19 16:50 Urine Bilirubin NEGATIVE (NEGATIVE) 11/16/19 16:50 Urine Urobilinogen NEGATIVE mg/dL (<2.0) 11/16/19 16:50 Ur Leukocyte Esterase NEGATIVE (NEGATIVE) 11/16/19 16:50 Urine WBC (Auto) 0 /HPF 11/16/19 16:50 Urine RBC (Auto) 0 /HPF 11/16/19 16:50 Urine Mucus (Auto) RARE /LPF 11/16/19 16:50 Urine Ascorbic Acid NEGATIVE (NEGATIVE) 11/16/19 16:50 Slides for Path Review PATHOLOGIST REVIEWED 11/19/19 06:59 Blood Type A POSITIVE 11/17/19 09:52 Antibody Screen NEGATIVE 11/17/19 09:52 Crossmatch See Detail 11/17/19 09:52 Impressions: Chest X-Ray 11/16/19 00:00 IMPRESSION: No acute cardiopulmonary process. Plan Health Concerns: Persistent pancytopenia Plan of Treatment: Complete outpatient antibiotics and follow-up with Dr. Bullard Goals: Recovery of hemoglobin, white blood cells and platelets in preparation for ongoing chemotherapy Time Spent: Greater than 30 Minutes Stroke Is this a Stroke Patient?: No Acute Heart Failure - Is this a Heart Failure Patient?: No
[2019-11-19] MEDS ORDERED: NORMAL SALINE 10 ML SDV (AFTER EACH USE) IV PRN (15:30)
[2019-11-19] MEDS ORDERED: NORMAL SALINE 10 ML SDV (SCHEDULED) IV SCH (22:00)
== END 2019-11-19 15:59 | disposition home health service (06) | DRG 809 ==
LOC: ER 11:08 → EH 12:30 → 4N 14:23
PROVIDERS: ADMIT Internal Medicine; ATTEND Hospitalist
PROC: 30233N1 Transfusion of Nonautologous Red Blood Cells into Peripheral Vein, Percutaneous Approach (ICD-10-PCS; principal; 2019-11-17)
DX: D70.1 Agranulocytosis secondary to cancer chemotherapy (principal); C92.00 Acute myeloblastic leukemia, not having achieved remission; T45.1X5A Adverse effect of antineoplastic and immunosuppressive drugs, initial encounter; Y92.9 Unspecified place or not applicable; R50.81 Fever presenting with conditions classified elsewhere; I10 Essential (primary) hypertension; I25.10 Atherosclerotic heart disease of native coronary artery without angina pectoris; E78.5 Hyperlipidemia, unspecified; B95.8 Unspecified staphylococcus as the cause of diseases classified elsewhere; Z66 Do not resuscitate; Z79.899 Other long term (current) drug therapy; Z82.49 Family history of ischemic heart disease and other diseases of the circulatory system; Z82.3 Family history of stroke
CPT/HCPCS: 36415; 36430; 71045; 80048; 80053; 81001; 82803; 83605; 83735; 85025; 85610; 86850; 86900; 86901; 86920; 87040; 87077; 87086; 87150; 87186; 93005; 93010; 96374; 99285; J0692; J2550; J3370; J3490; J7060; P9016; S0183

== ENCOUNTER 2019-11-23 09:52 | Emergency (ER) | payer MEDICARE ==
[2019-11-23] MEDS ORDERED: NORMAL SALINE 500 ML IV ONE (10:40)
[2019-11-23] MEDS ORDERED: PANTOPRAZOLE SODIUM 40 MG VIAL IV ONE (10:45)
[2019-11-23 10:58] LABS: MEAN CORPUSCULAR HGB CONC 34.6 g/dL (32.0-36.0); MEAN CORPUSCULAR VOLUME 92 fl (80-97); RED BLOOD COUNT 1.62 10^6/uL (3.72-5.28); RED CELL DISTRIBUTION WIDTH 14.2 % (11.5-14.0); WHITE BLOOD COUNT 3.6 10^3/uL (4.0-10.5)
[2019-11-23 11:06] LABS: INTERNATIONAL RATION (INR) 1.07; PARTIAL THROMBOPLASTIN TIME 24.2 SEC (23.5-35.8); PROTHROMBIN TIME 13.9 SEC (11.4-15.4)
[2019-11-23 11:10] LABS: HEMOGLOBIN 5.2 g/dL (12.0-15.5); PLATELET COUNT < 3 10^3/uL (150-450)
[2019-11-23 11:11] LABS: HEMATOCRIT 14.9 % (36.0-47.0)
[2019-11-23 11:13] LABS: ALBUMIN 2.8 g/dL (3.5-5.0); ALKALINE PHOSPHATASE 48 U/L (38-126); ANION GAP 8 (5-19); ASPARTATE AMINO TRANSFERASE 18 U/L (14-36); BILIRUBIN,TOTAL 0.5 mg/dL (0.2-1.3); BLOOD UREA NITROGEN 44 mg/dL (7-20); CALCIUM 8.6 mg/dL (8.4-10.2); CARBON DIOXIDE 22 mmol/L (22-30); CHLORIDE 107 mmol/L (98-107); CREATINE KINASE < 20 U/L (30-135); GLUCOSE 161 mg/dL (75-110); POTASSIUM 3.8 mmol/L (3.6-5.0); TOTAL PROTEIN 5.2 g/dL (6.3-8.2)
[2019-11-23 11:15] LABS: ABSOLUTE LYMPHOCYTES# (MANUAL) 3.3 10^3/uL (0.5-4.7); BASOPHILS % (MANUAL) 0 % (0-2); EOSINOPHILS % (MANUAL) 2 % (0-6); LYMPHOCYTES % (MANUAL) 87 % (13-45); MONOCYTES % (MANUAL) 0 % (3-13); NUCLEATED RED BLOOD CELLS 2 /100 WBC (0); SEGMENTED NEUTROPHILS % (MAN) 5 % (42-78); TOTAL CELLS COUNTED 100
[2019-11-23 11:16] LABS: ANISOCYTOSIS SLIGHT; OVALOCYTES SLIGHT; POIKILOCYTOSIS SLIGHT; POLYCHROMASIA SLIGHT
[2019-11-23 11:17] LABS: PLATELET COMMENT DECREASED
[2019-11-23] MEDS ORDERED: NORMAL SALINE 250 ML IV PRN ×4 (11:22→11:29)
[2019-11-23 11:25] LABS: CREATINE KINASE MB 0.28 ng/mL (<4.55); NT PRO BNP 154 pg/mL (<450)
[2019-11-23 11:31] LABS: TROPONIN I < 0.012 ng/mL
--- NOTE | 2019-11-23 11:42 | RADIOLOGY REPORT (SQ) ---
EXAM DESCRIPTION: ACUTE ABDOMEN SERIES IMAGES COMPLETED DATE/TIME: 11/23/2019 11:28 am REASON FOR STUDY: melena/generalized weakness COMPARISON: None. NUMBER OF VIEWS: Three views. TECHNIQUE: Frontal chest, supine abdomen and upright/decubitus abdomen radiographic images acquired. LIMITATIONS: None. FINDINGS: CHEST: Hyperinflation. No focal airspace disease, pleural effusion or pneumothorax. Tunn eled right internal jugular small bore catheter with tip at cavoatrial junction. FREE AIR: None. No abnormal gas collections. BOWEL GAS PATTERN: Nonobstructive pattern. No dilated loops or air fluid levels. CALCIFICATIONS: No suspicious calcifications. HARDWARE: Bilateral renal stents. SOFT TISSUES: No gross mass or suggestion of organomegaly. BONES: Decreased bony mineralization. Thoracolumbar spondylosis with serpiginous curvature. Degener ative changes at the hips. OTHER: No other significant finding. IMPRESSION: No evidence of acute intrathoracic process. No radiographic evidence of acute intra-abdominal/pelvic process. TECHNICAL DOCUMENTATION: JOB ID: [id number] 2010 [employer]- All Rights Reserved Reading location - IP/workstation name: [email or web address]
--- NOTE | 2019-11-23 11:54 | EKG REPORT ---
SEVERITY:- ABNORMAL ECG - SINUS TACHYCARDIA LVH WITH SECONDARY REPOLARIZATION ABNORMALITY : Confirmed by: Jamse Franks MD 23-Nov-2019 11:53:23
[2019-11-23] MEDS ORDERED: ONDANSETRON HCL INJ/PF 4 MG/2 ML SDV ONE (12:58)
[2019-11-23] MEDS ORDERED: ONDANSETRON HCL INJ/PF 4 MG/2 ML SDV IV ONE (12:58)
--- NOTE | 2019-11-23 13:24 | RADIOLOGY REPORT (SQ) ---
EXAM DESCRIPTION: KUB/ABDOMEN (SINGLE VIEW) IMAGES COMPLETED DATE/TIME: 11/23/2019 1:14 pm REASON FOR STUDY: ng placement COMPARISON: None. NUMBER OF VIEWS: One view. TECHNIQUE: Supine radiographic image of the abdomen acquired. LIMITATIONS: None. FINDINGS: BOWEL GAS PATTERN: Limited examination. Normal bowel gas pattern. No dilated loops. CALCIFICATIONS: No suspicious calcifications. SOFT TISSUES: No gross mass or suggestion of organomegaly. HARDWARE: Interval placement of nasogastric tube, the tip overlies the fundus of stomach. Partially visualized right central venous line. Vascular stents overlying the L2 vertebral body may be located within the renal arteries. BONES: Degenerative changes and levoconvex scoliosis lumbar spine. OTHER: Residual IV contrast in the bilateral renal collecting systems related to CT examination perf ormed on 11/23/2019. IMPRESSION: 1. Interval placement of nasogastric tube with the tip overlying the fundus of the stom ach. TECHNICAL DOCUMENTATION: JOB ID: [id number] 2010 [employer]- All Rights Reserved Reading location - IP/workstation name: [email or web address]
--- NOTE | 2019-11-23 13:29 | RADIOLOGY REPORT (SQ) ---
EXAM DESCRIPTION: CTA ABDOMEN/PELVIS W WO IMAGES COMPLETED DATE/TIME: 11/23/2019 12:54 pm REASON FOR STUDY: hypotension/melena COMPARISON: None. TECHNIQUE: CT scan of the abdominal aorta extending to the iliac bifurcation performed with intraven ous contrast using helical scanning technique with dynamic intravenous contrast injection. Images rev iewed with lung, soft tissue, and bone windows. Reconstructed coronal and sagittal MPR images reviewe d. All images stored on PACS. Advanced 3D imaging as volume rendering, MIPS, SSD performed? yes All CT scanners at this facility use dose modulation, iterative reconstruction, and/or weight based d osing when appropriate to reduce radiation dose to as low as reasonably achievable (ALARA). [facility]: Dose Right [facility]: CareDose [facility]: Dose Right [facility]: Teradose 4D [facility]: Procurify CONTRAST TYPE AND DOSE: 55 cc Omnipaque 350 RENAL FUNCTION: Creatinine 0.47 LIMITATIONS: None. FINDINGS: AORTA AND VESSELS: Aortoiliac atherosclerosis. High-grade narrowing at the celiac origin, likely secondary to the median arcuate ligament. There is diffuse long segment diminutive caliber o f the SMA throughout the majority of its course with associated wall thickening and ill-defined stran ding. PHILIP origin is non-opacified. Distal PHILIP branches are visualized. Patent bilateral renal everette ry stents. No aortic aneurysm. Iliac artery is without high-grade stenosis, dissection or aneurysm. LUNG BASES: Spiculated 7 mm right lower lobe pulmonary nodule (series 4, image 6). Scattered coronar y atherosclerosis. LIVER: Indeterminate density 16 mm segment 6 hepatic lesion (series 3, image 48). No additional disc rete lesions. No intrahepatic ductal dilation. Normal hepatic size. SPLEEN: Normal size. No focal lesions. PANCREAS: No masses. No significant calcifications. No adjacent inflammation or peripancreatic fluid collections. Pancreatic duct not dilated. GALLBLADDER: No identified stones by CT criteria. No inflammatory changes to suggest cholecystitis. ADRENAL GLANDS: No significant masses or asymmetry. RIGHT KIDNEY AND URETER: No mass, calculi or urinary tract obstruction. LEFT KIDNEY AND URETER: No mass, calculi or urinary tract obstruction. RETROPERITONEUM: No retroperitoneal adenopathy, hemorrhage or masses. BOWEL AND PERITONEAL CAVITY: Small hiatal hernia. No masses or inflammatory changes. No free fluid or peritoneal masses. APPENDIX: Not clearly identified. ABDOMINAL WALL: No discrete subcutaneous mass. No significant hernia. Subcutaneous edema diffusely. BONY STRUCTURES: Decreased osseous mineralization. L1 inferior endplate irregularity with less than 50% height loss, chronicity uncertain. No acute findings. No discrete lytic or blastic osseous lesi ons. Multilevel spondylosis and facet arthropathy. 3-D IMAGING: Confirms the above findings. OTHER: No other significant finding. IMPRESSION: 1. Diffuse long segment diminutive caliber of the SMA throughout the majority of its co urse with associated wall thickening and ill-defined stranding. Findings suggestive of a vasculitis and likely accounting for patient's symptoms. High-grade narrowing at the celiac origin, likely seco ndary to to the median arcuate ligament. PHILIP origin is non-opacified. 2. Indeterminate 16 mm right hepatic lobe lesion, possibly proteinaceous cysts although incompletely characterized. multiphase MRI or CT could be considered for more definitive characterization. 3. 7 mm right lower lobe pulmonary nodule. 4. Additional incidental findings as above. Findings discussed with Dr. Alfredo at 1321 hours on 11/23/2019. COMMENT: F[place]ISCHNER CRITERIA FOR FOLLOW-UP OF PULMONARY NODULES Incidentally detected new nodules in persons 35 or older. HIGH RISK: History of smoking or other known risk factors. 6-8 mm single solid nodule: LOW RISK: CT 6-12 mo; then consider CT 18-24 mo. HIGH RISK: CT 6-12 mo; t hen CT 18-24 mo. TECHNICAL DOCUMENTATION: JOB ID: [id number] Quality ID # [id number]: Final reports with documentation of one or more dose reduction techniques (e.g., Au tomated exposure control, adjustment of the mA and/or kV according to patient size, use of iterative reconstruction technique) 2010 [employer]- All Rights Reserved Reading location - IP/workstation name: [email or web address]
--- NOTE | 2019-11-23 13:43 | ER Document Report ---
Entered by JENNI CRUZ SCRIBE 11/23/19 1035 Acting as scribe for:HAYDER RODRIGUEZ MD ED General - General Chief Complaint: General Weakness Stated Complaint: GENERAL WEAKNESS Time Seen by Provider: 11/23/19 10:05 Primary Care Provider: MENDEZ BORJA DO [Primary Care Provider] - Follow up as needed Information source: Patient Notes: This 79 year old female patient presents to the emergency department today with general weakness for the past x1 week. Patient has a history of Leukemia and her last visit with her physician Dr. Bella at [facility] was x3 months ago. Patient states she visited the ED x1 week ago. Patient states she is nauseous, vomited this morning, and it was dark/black. Patient states her stool was also dark this morning. Patient states she suspects blood was in her vomit and stool this morning. Denies any fever or pain. Patient states she finished her Amoxicillin last night. TRAVEL OUTSIDE OF THE [place] IN LAST 30 DAYS: No - Related Data Allergies/Adverse Reactions: No Known Allergies Allergy (Verified 08/09/17 10:54) Past Medical History - General Information source: Patient - Social History Smoking Status: Never Smoker Cigarette use (# per day): No Chew tobacco use (# tins/day): No Frequency of alcohol use: None Drug Abuse: None Family History: CAD - mi in mother at 42yo, CVA, Hypertension Patient has homicidal ideation: No - Past Medical History Cardiac Medical History: Reports: Hx Coronary Artery Disease, Hx Hypercholesterolemia, Hx Hypertension - MEDICATED Malignancy Medical History: Reports: Hx Leukemia Musculoskeletal Medical History: Reports Hx Arthritis Past Surgical History: Reports: Hx Vascular Surgery - right chest head, Other - Cataracts, kidney stone retrieval, tonsillectomy, bone marrow biopsies - Immunizations Hx Diphtheria, Pertussis, Tetanus Vaccination: Yes Hx Pneumococcal Vaccination: 02/09/16 Review of Systems - Review of Systems Constitutional: See HPI. denies: Fever EENT: No symptoms reported Cardiovascular: No symptoms reported Respiratory: No symptoms reported Gastrointestinal: See HPI, Nausea, Vomiting - Dark/black, Black stools Genitourinary: No symptoms reported Female Genitourinary: No symptoms reported Musculoskeletal: See HPI Skin: No symptoms reported Hematologic/Lymphatic: See HPI Neurological/Psychological: No symptoms reported -: Yes All other systems reviewed and negative Physical Exam - Vital signs Vitals: Temp 97.7 F 11/23/19 09:56 - General General appearance: Appears well, Alert - HEENT Head: Normocephalic, Atraumatic Eyes: Pale conjunctiva Pupils: PERRL Mouth/Lips: Other - Pale Mucous membranes: Dry - Respiratory Respiratory status: No respiratory distress Chest status: Nontender Breath sounds: Normal Chest palpation: Normal - Cardiovascular Rhythm: Tachycardia Heart sounds: Normal auscultation, S1 appreciated, S2 appreciated Murmur: No Notes: Capillary refill is delayed. - Abdominal Inspection: Normal - Soft Distension: No distension Bowel sounds: Normal Tenderness: Nontender - Rectal Stool: Heme positive, Black Hemorrhoids: External - Extremities General upper extremity: No: Edema General lower extremity: No: Edema Hand: Other - Nails are pale bilaterally. - Neurological Neuro grossly intact: Yes Cognition: Normal Orientation: AAOx4 - Psychological Associated symptoms: Normal affect, Normal mood - Skin Skin Moisture: Dry Skin Color: Pale Notes: Petechiae located all over body. Course - Re-evaluation Re-evalutation: 11/23/19 13:34 Patient is resting comfortably at this time denies any abdominal pain NG tube draining some dark blood at this time patient is currently receiving her second unit of packed red blood cells also she is has already received 1 unit of platelets. Patient will be transferred with 2 units of packed red blood cells to give each unit over 90 minutes. - Vital Signs Vital signs: Temp Pulse Resp BP Pulse Ox 97.7 F 27 H 129/70 H 100 11/23/19 09:56 11/23/19 13:01 11/23/19 13:01 11/23/19 12:59 11/23/19 13:35 Vital signs have remained stable blood pressure is 129/70 with a pulse of 97. - Laboratory Result Diagrams: 11/23/19 10:40 11/23/19 10:40 Laboratory results interpreted by me: 11/23/19 11/23/19 11/23/19 10:40 10:40 10:40 WBC 3.6 L RBC 1.62 L Hgb 5.2 L Hct 14.9 L* RDW 14.2 H Plt Count < 3 L* Seg Neuts % (Manual) 5 L Lymphocytes % (Manual) 87 H Monocytes % (Manual) 0 L Abs Neuts (Manual) 0.2 L Abs Monocytes (Manual) 0.0 L Sodium 136.5 L BUN 44 H Creatinine 0.47 L Glucose 161 H Lactic Acid Creatine Kinase < 20 L Total Protein 5.2 L Albumin 2.8 L Crossmatch See Detail 11/23/19 11:00 WBC RBC Hgb Hct RDW Plt Count Seg Neuts % (Manual) Lymphocytes % (Manual) Monocytes % (Manual) Abs Neuts (Manual) Abs Monocytes (Manual) Sodium BUN Creatinine Glucose Lactic Acid 2.9 H Creatine Kinase Total Protein Albumin Crossmatch We can this is 20 - Diagnostic Test Radiology reviewed: Image reviewed, Reports reviewed Radiology results interpreted by me: 11/23/19 13:36 Acute abdominal series including flat and upright abdomen and has 1 view chest shows no acute process no infiltrate in the lungs no free air underneath the diaphragm nonspecific bowel gas pattern. 11/23/19 13:38 CT angiogram of abdomen and pelvis shows high-grade stenosis narrowing of the SMA with a long segment of wall thickening. Also noted is PHILIP was not well supplied as well. Suspicious for some type of vasculitis. 11/23/19 13:38 KUB for NG tube placement shows NG tube tip in the fundus of the stomach no complications noted. Critical Care Note - Critical Care Note Total time excluding time spent on procedures (mins): 99 - Monitoring of hemodynamics blood pressure pulse management of upper GI bleed with IV Protonix, NG tube, controlling nausea and vomiting, fluid administration and blood a dministration. Multiple discussions with the the [facility] transfer team as well as the local hematology oncology clinic. Also discussed with our obiee architect at the local hospital here. 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
[2019-11-23 14:08] VITALS: BP 170/76
[2019-11-23 14:14] LABS: HEMATOCRIT 23.2 % (36.0-47.0); MEAN CORPUSCULAR HEMOGLOBIN 31.4 pg (27.0-33.4); MEAN CORPUSCULAR HGB CONC 34.7 g/dL (32.0-36.0); MEAN CORPUSCULAR VOLUME 91 fl (80-97); RED BLOOD COUNT 2.56 10^6/uL (3.72-5.28); RED CELL DISTRIBUTION WIDTH 13.6 % (11.5-14.0)
[2019-11-23 14:27] LABS: HEMOGLOBIN 8.1 g/dL (12.0-15.5); PLATELET COUNT 82 10^3/uL (150-450); WHITE BLOOD COUNT 2.4 10^3/uL (4.0-10.5)
[2019-11-23 14:33] LABS: ABSOLUTE LYMPHOCYTES# (MANUAL) 2.2 10^3/uL (0.5-4.7); ANISOCYTOSIS SLIGHT; BASOPHILS % (MANUAL) 0 % (0-2); EOSINOPHILS % (MANUAL) 0 % (0-6); LYMPHOCYTES % (MANUAL) 88 % (13-45); MONOCYTES % (MANUAL) 1 % (3-13); SEGMENTED NEUTROPHILS % (MAN) 8 % (42-78); TOTAL CELLS COUNTED 100
[2019-11-23 14:34] LABS: PLATELET COMMENT DECREASED; POIKILOCYTOSIS SLIGHT; POLYCHROMASIA SLIGHT
[2019-11-23 14:35] LABS: OVALOCYTES SLIGHT
== END 2019-11-23 14:21 | disposition short-term general hospital (02) ==
LOC: ER 09:52
DX: C92.00 Acute myeloblastic leukemia, not having achieved remission (principal); K55.1 Chronic vascular disorders of intestine; D72.819 Decreased white blood cell count, unspecified; K92.1 Melena; D64.9 Anemia, unspecified; D69.6 Thrombocytopenia, unspecified; R53.1 Weakness; R11.2 Nausea with vomiting, unspecified; R19.5 Other fecal abnormalities; I25.10 Atherosclerotic heart disease of native coronary artery without angina pectoris; I10 Essential (primary) hypertension; Z79.899 Other long term (current) drug therapy
CPT/HCPCS: 93005; 99291; 99292; 96361; 96374; 96375; 86900; 86901; 36415; 87040; 82553; 36430; 86850; 82550; 83605; 83690; 85025; 85610; 85730; 82270; 80053; 84484; 86920; 83880; 74022; 74018; 74174; 93010; P9016; P9035; C9113; J2405; J7040

== ENCOUNTER → 2019-12-07 | Outpatient (CLI) | payer MEDICARE, OTHER | LOC: OD 15:20 | PROVIDERS: ATTEND Internal Medicine Hematology & Oncology | DX: C92.00 Acute myeloblastic leukemia, not having achieved remission (principal) ==